=== PATIENT | female | born 1930 | race Caucasian/White ===

== ENCOUNTER 2016-11-07 12:42 | Emergency (ER) | payer MEDICARE, BC ==
[2016-11-07] MEDS ORDERED: Sodium Chloride 0.9% 2.5 ML Syringe FLUSH PRN (13:27)
[2016-11-07] MEDS ORDERED: Sodium Chloride 0.9% 10 ML Syringe FLUSH PRN (13:27)
--- NOTE | 2016-11-07 13:34 | EDM.PDOC ---
ED HPI Trauma - General Chief Complaint: Lower Extremity Injury/Pain Stated Complaint: RIGHT LEG Time Seen by Provider: 11/07/16 13:21 - History of Present Illness INITIAL COMMENTS - FREE TEXT/NARRATIVE: HISTORY AND PHYSICAL: History of present illness: Patient is an 86-year-old female who lives at [facility] and presents with complaints of bilateral leg pain and swelling that has been on and off for the last several weeks but worse the last few days. The patient states she had this happen in the past and it was treated by Dr. Thomas at [facility] but she doesn't recall how that was treated. The patient says that her left leg was swollen first and than the right started to swell and they wrapped the leg and that has since improved with the right leg is still swollen. She states that the pain is mostly when she is up trying to move around and she always uses a walker. She has not had a fall recently but she did have a fall several months ago with rib fractures and she says she still has some pain at the right chest wall area and occasional short of breath and cough. She's had no fevers chills nausea vomiting anterior chest pain abdominal pain vomiting or diarrhea. She says she is urinating fine and has been eating well. She has no neurosensory changes in her legs and says that the swelling is only below the knees and she is here for this evaluation. She currently follows with Dr. Espinoza at [facility] and he has not seen her for this. Review of systems: As per history of present illness and below otherwise all systems reviewed and negative. Past medical history: As per history of present illness and as reviewed below otherwise noncontributory. Surgical history: As per history of present illness and as reviewed below otherwise noncontributory. Social history: No reported history of drug or alcohol abuse. Family history: As per history of present illness and as reviewed below otherwise noncontributory. Physical exam: General: Well-developed thin and frail female who is nontoxic and speaking clearly and easily in ED. Vitals have been reviewed by me. Patient is very poor dentition HEENT: Atraumatic, normocephalic, pupils reactive, negative for conjunctival pallor or scleral icterus, mucous membranes moist, throat clear, neck supple, nontender, trachea midline. Lungs: Clear to auscultation, breath sounds equal bilaterally, chest nontender. The patient has a very kyphotic thoracic spine and she is moving air well bilaterally without work of breathing or sensory muscle use stridor or wheezing. I cannot appreciate any tenderness or defects of the chest wall on the right side the Heart: S1S2, regular rhythm slightly bradycardic rate on my evaluation, negative for clicks, rubs, or JVD. Abdomen: Soft, nondistended, nontender. Rotund abdomen with hypoactive bowel sounds but no tympany. Negative for masses or hepatosplenomegaly. Negative for costovertebral tenderness. Pelvis: Stable nontender. Genitourinary: Deferred. Rectal: Deferred. Extremities: Atraumatic, negative for cords or calf pain. Neurovascular unremarkable. The left lower leg has trace edema and there are chronic skin changes appreciated. The right lower extremity , from the knee to the dorsal aspect of the foot, has very soft edema nonpitting which also has a pinkish hue to it and some warmth posteriorly. It is about 1+. The patient's legs overall are very small and she is no discrete calf tenderness. There are no open wounds seen and there are also chronic skin changes to the right leg Neuro: Awake, alert, oriented. Motor and sensory unremarkable throughout. Exam nonfocal. Skin: Turgor is somewhat diminished and she has chronic skin changes seen on her upper and lower extremities but no open wounds Diagnostics: EKG chest x-ray CBC CMP BNP UA troponin lactic acid urine culture Therapeutics: IV O2 monitor keflex I discussed all testing with the patient and I will give her Keflex as an early cellulitis of her right leg as well as an early UTI. The patient has AMAN hose for both legs at home and have advised that she wear AMAN hose on both legs as much as possible to reduce the swelling. She will need to followup with Dr. Espinoza. Impression: Lower extremity dependent edema, early cellulitis right leg and early UTI Definitive disposition and diagnosis as appropriate pending reevaluation and review of above. Allergies/ADRs: Allergies clindamycin Allergy (Verified 11/07/16 13:19) Hives erythromycin base [Erythromycin Base] Allergy (Verified 11/07/16 13:19) Rash ibuprofen Allergy (Verified 11/07/16 13:19) Hives Sulfa (Sulfonamide Antibiotics) Allergy (Verified 11/07/16 13:19) Hives tolterodine tartrate [From Detrol] Allergy (Verified 03/23/17 13:19) Vomiting Home Medications: Ambulatory Orders Acetaminophen/oxyCODONE [Percocet 325-5 MG] 1 tab PO Q6HR PRN 03/12/14 [ Confirmed 07/06/16] Methylcellulose [Citrucel] 500 mg PO DAILY 03/12/14 [Confirmed 07/06/16] Solifenacin [Vesicare] 5 mg PO DAILY 03/12/14 [Confirmed 07/05/16] predniSONE 5 mg PO DAILY 03/12/14 [Confirmed 07/06/16] Bisacodyl 1 supp RECTAL ASDIRECTED PRN 07/05/16 [Confirmed 07/06/16] Denosumab [Prolia] 60 mg SUBCUT ASDIRECTED 07/05/16 [Confirmed 07/05/16] Hydroxychloroquine [Plaquenil] 200 mg PO DAILY 07/05/16 [Confirmed 07/06/16] Loperamide [Imodium] 2 mg PO ASDIRECTED 07/05/16 [Confirmed 07/06/16] Mag Hydrox/Al Hydrox/Simeth [Maalox Maximum Strength Susp] 1 - 2 tbsp PO QID PRN 07/05/16 [Confirmed 07/06/16] Omeprazole Magnesium [Prilosec Otc] 20 mg PO DAILY 07/05/16 [Confirmed 07/05/16] PARoxetine HCl [Paroxetine HCl] 10 mg PO DAILY 07/05/16 [Confirmed 07/06/16] Polyvinyl Alcohol [Artificial Tears] 1 drop EYEBOTH QID PRN 07/05/16 [Confirmed 07/06/16] Senna/Collace 2 tab PO BEDTIME 07/05/16 [Confirmed 07/06/16] Verapamil [Calan] 40 mg PO BID 07/05/16 [Confirmed 07/05/16] Acetaminophen [Tylenol] 650 mg PO Q4H PRN 07/06/16 [Confirmed 07/06/16] Calcium Carbonate/Vitamin D3 [Calcium 250+D] 2 tab PO DAILY 07/06/16 [Confirmed 07/06/16] Carboxymethylcellulose Sodium [Refresh Tears] 1 drop EYEBOTH BID 07/06/16 [ Confirmed 07/06/16] Furosemide 20 mg PO DAILY 07/06/16 [Confirmed 07/06/16] guaiFENesin/Codeine Phosphate [Guaiatussin AC] 1 tsp PO Q4H PRN 07/06/16 [ Confirmed 07/06/16] Docusate Sodium [Colace] 100 mg PO BID #30 cap 07/08/16 Hydrocodone/Acetaminophen [[place] 5-325] 1 - 2 tab PO Q4H PRN #60 tablet Past Medical History HEENT History: Reports: Allergic rhinitis Cardiovascular History: Reports: Hypertension, Other (see below) Other Cardiovascular History: venous insufficiency Respiratory History: Reports: None Gastrointestinal History: Reports: GERD, Other (see below) Other Gastrointestinal History: Chronic constipation Genitourinary History: Reports: Other (see below) Other Genitourinary History: bladder hypertonicity 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: Musculoskeletal History: Reports: Arthritis Neurological History: Reports: None Psychiatric History: Reports: None Endocrine/Metabolic History: Reports: Osteoporosis Hematologic History: Reports: Anemia Immunologic History: Reports: SLE Oncologic (Cancer) History: Reports: Breast Dermatologic History: Reports: None - Infectious Disease History Infectious Disease History: Reports: None - Past Surgical History HEENT Surgical History: Reports: None Cardiovascular Surgical History: Reports: None Respiratory Surgical History: Reports: None GI Surgical History: Reports: None Female Surgical History: Reports: Hysterectomy, Other (see below) Other Female Surgeries/Procedures: right breast mastectomy with lymphnodes removal Endocrine Surgical History: Reports: None Neurological Surgical History: Reports: None Musculoskeletal Surgical History: Reports: None Oncologic Surgical History: Reports: Mastectomy Dermatological Surgical History: Reports: None Social & Family History - Family History Family Medical History: Noncontributory - Tobacco Use Smoking Status *Q: Never Smoker Second Hand Smoke Exposure: No - Caffeine Use Caffeine Use: Reports: None - Alcohol Use Days Per Week of Alcohol Use: 0 - Recreational Drug Use Recreational Drug Use: No Review of Systems - Review of Systems Review Of Systems: ROS reveals no pertinent complaints other than HPI. Trauma Exam - Physical Exam Exam: See Below (See dictation) Course - Vital Signs Last Recorded V/S: Last Vital Signs Temp 36.8 C 11/07/16 13:15 Pulse 78 11/07/16 13:15 Resp 16 11/07/16 13:15 BP 109/48 L 11/07/16 13:15 Pulse Ox 98 11/07/16 14:01 - Orders/Labs/Meds Orders: Active Orders 24 hr Category Date Time Status Cardiac Monitoring [RC] . DIRECTED Care 11/07/16 13:27 Active EKG Documentation Completion [RC] STAT Care 11/07/16 13:27 Active Oxygen Therapy, ED [RC] ASDIRECTED Care 11/07/16 13:27 Active Pulse Oximetry [RC] ASDIRECTED Care 11/07/16 13:27 Active CULTURE URINE [RM] Stat Lab 11/07/16 16:24 Ordered Sodium Chloride 0.9% [Saline Flush] Med 11/07/16 13:27 Active 10 ml FLUSH ASDIRECTED PRN Sodium Chloride 0.9% [Saline Flush] Med 11/07/16 13:27 Active 2.5 ml FLUSH ASDIRECTED PRN Saline Lock Insert [OM.PC] Stat Oth 11/07/16 13:27 Ordered Medication Orders Sodium Chloride (Saline Flush) 10 ml FLUSH ASDIRECTED PRN PRN Reason: Keep Vein Open Sodium Chloride (Saline Flush) 2.5 ml FLUSH ASDIRECTED PRN PRN Reason: Keep Vein Open Labs: Laboratory Tests 11/07/16 11/07/16 11/07/16 Range/Units 13:43 13:43 13:43 WBC 9.23 (4.0-11.0) K/uL RBC 3.28 L (4.30-5.90) M/uL Hgb 10.1 L (12.0-16.0) g/dL Hct 30.6 L (36.0-46.0) % MCV 93.3 (80.0-98.0) fL MCH 30.8 (27.0-32.0) pg MCHC 33.0 (31.0-37.0) g/dL RDW Std Deviation 46.7 (28.0-62.0) fl RDW Coeff of Karina 14 (11.0-15.0) % Plt Count 244 (150-400) K/uL MPV 10.30 (7.40-12.00) fL Neut % (Auto) 71.9 (48.0-80.0) % Lymph % (Auto) 13.1 L (16.0-40.0) % Giles % (Auto) 13.0 (0.0-15.0) % Eos % (Auto) 1.8 (0.0-7.0) % Baso % (Auto) 0.2 (0.0-1.5) % Neut # (Auto) 6.6 H (1.4-5.7) K/uL Lymph # (Auto) 1.2 (0.6-2.4) K/uL Giles # (Auto) 1.2 H (0.0-0.8) K/uL Eos # (Auto) 0.2 (0.0-0.7) K/uL Baso # (Auto) 0.0 (0.0-0.1) K/uL Nucleated RBC % 0.0 /100WBC Nucleated RBCs # 0 K/uL Lactate (0.20-2.00) mmol/L Sodium 140 (136-146) mmol/L Potassium 3.7 (3.5-5.1) mmol/L Chloride 104 (98-110) mmol/L Carbon Dioxide 26 (21-31) mmol/L BUN 24 H (6.0-23.0) mg/dL Creatinine 1.0 (0.6-1.5) mg/dL Est Cr Clr Drug Dosing 28.78 mL/min Estimated GFR (MDRD) 52.4 ml/min Glucose 79 (60-110) mg/dL Calcium 8.9 (8.8-10.8) mg/dL Total Bilirubin 0.5 (0.1-1.5) mg/dL AST 17 (5-40) IU/L ALT 7 L (8-54) IU/L Alkaline Phosphatase 83 (40-150) Troponin I < 0.10 (0.0-0.29) NG/ML B-Natriuretic Peptide (<100) PG/ML Total Protein 5.8 L (6.0-8.0) g/dL Albumin 3.0 L (3.4-4.8) g/dL Globulin 2.8 (2.0-3.5) g/dL Albumin/Globulin Ratio 1.1 L (1.3-2.8) Urine Color Urine Appearance Urine pH (5.0-8.0) Ur Specific [place] (1.001-1.035) Urine Protein (NEGATIVE) mg/dL Urine Glucose (UA) (NEGATIVE) mg/dL Urine Ketones (NEGATIVE) mg/dL Urine Occult Blood (NEGATIVE) Urine Nitrite (NEGATIVE) Urine Bilirubin (NEGATIVE) Urine Urobilinogen (<2.0) EU/dL Ur Leukocyte Esterase (NEGATIVE) Urine RBC (0-2/HPF) Urine WBC (0-5/HPF) Ur Epithelial Cells (NONE-FEW) Urine Bacteria (NEGATIVE) 11/07/16 11/07/16 11/07/16 Range/Units 13:43 13:43 15:55 WBC (4.0-11.0) K/uL RBC (4.30-5.90) M/uL Hgb (12.0-16.0) g/dL Hct (36.0-46.0) % MCV (80.0-98.0) fL MCH (27.0-32.0) pg MCHC (31.0-37.0) g/dL RDW Std Deviation (28.0-62.0) fl RDW Coeff of Karina (11.0-15.0) % Plt Count (150-400) K/uL MPV (7.40-12.00) fL Neut % (Auto) (48.0-80.0) % Lymph % (Auto) (16.0-40.0) % Giles % (Auto) (0.0-15.0) % Eos % (Auto) (0.0-7.0) % Baso % (Auto) (0.0-1.5) % Neut # (Auto) (1.4-5.7) K/uL Lymph # (Auto) (0.6-2.4) K/uL Giles # (Auto) (0.0-0.8) K/uL Eos # (Auto) (0.0-0.7) K/uL Baso # (Auto) (0.0-0.1) K/uL Nucleated RBC % /100WBC Nucleated RBCs # K/uL Lactate 1.3 (0.20-2.00) mmol/L Sodium (136-146) mmol/L Potassium (3.5-5.1) mmol/L Chloride (98-110) mmol/L Carbon Dioxide (21-31) mmol/L BUN (6.0-23.0) mg/dL Creatinine (0.6-1.5) mg/dL Est Cr Clr Drug Dosing mL/min Estimated GFR (MDRD) ml/min Glucose (60-110) mg/dL Calcium (8.8-10.8) mg/dL Total Bilirubin (0.1-1.5) mg/dL AST (5-40) IU/L ALT (8-54) IU/L Alkaline Phosphatase (40-150) Troponin I (0.0-0.29) NG/ML B-Natriuretic Peptide 74 (<100) PG/ML Total Protein (6.0-8.0) g/dL Albumin (3.4-4.8) g/dL Globulin (2.0-3.5) g/dL Albumin/Globulin Ratio (1.3-2.8) Urine Color YELLOW Urine Appearance CLEAR Urine pH 7.0 (5.0-8.0) Ur Specific [place] 1.010 (1.001-1.035) Urine Protein NEGATIVE (NEGATIVE) mg/dL Urine Glucose (UA) NEGATIVE (NEGATIVE) mg/dL Urine Ketones NEGATIVE (NEGATIVE) mg/dL Urine Occult Blood TRACE-INTACT (NEGATIVE) Urine Nitrite NEGATIVE (NEGATIVE) Urine Bilirubin NEGATIVE (NEGATIVE) Urine Urobilinogen 0.2 (<2.0) EU/dL Ur Leukocyte Esterase MODERATE (NEGATIVE) Urine RBC 0-2 (0-2/HPF) Urine WBC 0-2 (0-5/HPF) Ur Epithelial Cells OCCASIONAL (NONE-FEW) Urine Bacteria FEW (NEGATIVE) Meds: Medications Generic Name Dose Route Start Last Admin Trade Name Freq PRN Reason Stop Dose Admin Sodium Chloride 10 ml 11/07/16 13:27 Saline Flush FLUSH ASDIRECTED PRN Keep Vein Open Sodium Chloride 2.5 ml 11/07/16 13:27 Saline Flush FLUSH ASDIRECTED PRN Keep Vein Open Discontinued Medications Generic Name Dose Route Start Last Admin Trade Name Freq PRN Reason Stop Dose Admin Cephalexin 500 mg 11/07/16 16:25 Keflex PO 11/07/16 16:26 ONETIME ONE Departure - Departure Time of Disposition: 16:33 Disposition: Home, Self-Care 01 Condition: good Clinical Impression: Cellulitis of leg, right, Bilateral lower extremity edema UTI (urinary tract infection) Qualifiers: Urinary tract infection type: site unspecified Hematuria presence: without hematuria Qualified Code(s): N39.0 - Urinary tract infection, site not specified Forms: ED Department Discharge Additional Instructions: The following information is given to patients seen in the emergency department who are being discharged to home. This information is to outline your options for follow-up care. We provide all patients seen in our emergency department with a follow-up referral. The need for follow-up, as well as the timing and circumstances, are variable depending upon the specifics of your emergency department visit. If you don't have a primary care physician on staff, we will provide you with a referral. We always advise you to contact your personal physician following an emergency department visit to inform them of the circumstance of the visit and for follow-up with them and/or the need for any referrals to a consulting specialist. The emergency department will also refer you to a specialist when appropriate. This referral assures that you have the opportunity for followup care with a specialist. All of these measure are taken in an effort to provide you with optimal care, which includes your followup. Under all circumstances we always encourage you to contact your private physician who remains a resource for coordinating your care. When calling for followup care, please make the office aware that this follow-up is from your recent emergency room visit. If for any reason you are refused follow-up, please contact the [facility] emergency department at and ask to speak to the emergency department charge nurse. [address] [place] [address] Please wear AMAN hose at all times and remove at bedtime. Please take antibiotics as directed. Please watch salt intake and call and followup with Dr. Espinoza at [facility]. Please return to ER as needed and as discussed please push more fluids. - My Orders Last 24 Hours: My Active Orders 11/07/16 13:27 Cardiac Monitoring [RC] . DIRECTED EKG Documentation Completion [RC] STAT Oxygen Therapy, ED [RC] ASDIRECTED Pulse Oximetry [RC] ASDIRECTED Sodium Chloride 0.9% [Saline Flush] 10 ml FLUSH ASDIRECTED PRN Sodium Chloride 0.9% [Saline Flush] 2.5 ml FLUSH ASDIRECTED PRN Saline Lock Insert [OM.PC] Stat 11/07/16 16:24 CULTURE URINE [RM] Stat - Assessment/Plan Last 24 Hours: My Active Orders 11/07/16 13:27 Cardiac Monitoring [RC] . DIRECTED EKG Documentation Completion [RC] STAT Oxygen Therapy, ED [RC] ASDIRECTED Pulse Oximetry [RC] ASDIRECTED Sodium Chloride 0.9% [Saline Flush] 10 ml FLUSH ASDIRECTED PRN Sodium Chloride 0.9% [Saline Flush] 2.5 ml FLUSH ASDIRECTED PRN Saline Lock Insert [OM.PC] Stat 11/07/16 16:24 CULTURE URINE [] Stat
--- NOTE | 2016-11-07 14:13 | CR ---
EXAMINATION: Two-view chest (PA and Lateral views). HISTORY: Shortness of breath. Comparison: 07/08/2016. FINDINGS: The trachea is midline. The cardiomediastinal silhouette is within normal limits. No pulmonary infil trates, effusions or pneumothorax. Mild chronic interstitial prominence. Aortic calcifications are n oted. Old left-sided rib fractures are noted. The osseous structures appear osteopenic. Chronic left clavi lulú fracture. IMPRESSION: No acute cardiopulmonary process.
[2016-11-07] MEDS ORDERED: Cephalexin 500 MG Cap PO ONE (16:25)
[2016-11-07 16:54] VITALS: BP 121/76
== END 2016-11-07 16:51 | disposition home or self-care (01) ==
LOC: MW.ED 12:42
DX: L03.116 Cellulitis of left lower limb (principal); L03.115 Cellulitis of right lower limb; N39.0 Urinary tract infection, site not specified; I10 Essential (primary) hypertension; K21.9 Gastro-esophageal reflux disease without esophagitis; M19.90 Unspecified osteoarthritis, unspecified site; Z86.2 Personal history of diseases of the blood and blood-forming organs and certain disorders involving the immune mechanism; Z90.710 Acquired absence of both cervix and uterus; Z88.2 Allergy status to sulfonamides; Z88.1 Allergy status to other antibiotic agents; Z88.8 Allergy status to other drugs, medicaments and biological substances; Z88.6 Allergy status to analgesic agent
CPT/HCPCS: 36415; 71020; 80053; 81001; 83605; 83880; 84484; 85025; 87086; 93005; 99284; A9270; 99283

== ENCOUNTER 2016-12-24 15:53 | Emergency (ER) | payer MEDICARE, BC ==
[2016-12-24] MEDS ORDERED: Sodium Chloride 0.9% 1,000 ML IV ONE (16:12)
[2016-12-24] MEDS ORDERED: Sodium Chloride 0.9% 10 ML Syringe FLUSH PRN (16:12)
[2016-12-24] MEDS ORDERED: Sodium Chloride 0.9% 2.5 ML Syringe FLUSH PRN (16:12)
--- NOTE | 2016-12-24 16:21 | EDM.PDOC ---
ED HPI GENERAL MEDICAL PROBLEM - General Chief Complaint: Gastrointestinal Problem Stated Complaint: PT HAS BODY PAIN Time Seen by Provider: 12/24/16 15:59 Source of Information: Reports: Patient History Limitations: Reports: No limitations - History of Present Illness INITIAL COMMENTS - FREE TEXT/NARRATIVE: History of present illness: [] Patient was seen in clinic today diagnosed with fecal impaction, small bowel obstruction on x-rays. She's had abdominal, back pain and nausea for 3 days. She has had no vomiting. She tolerated lunch at 11:30 today and had meatballs and mashed potatoes at [employer]. Patient's workup shows an infected urine with a WBC count of 11,000 with 81% neutrophils. Patient states she has pain when she urinates it is sharp. She has been passing gas daily including today. Patient had one day over the weekend where she stated her belly was rock hard but now it is "soft". Review of systems: As per history of present illness and below otherwise all systems reviewed and negative. Past medical history: As per history of present illness and as reviewed below otherwise noncontributory. Surgical history: As per history of present illness and as reviewed below otherwise noncontributory. Social history: No reported history of drug or alcohol abuse. Family history: As per history of present illness and as reviewed below otherwise noncontributory. Physical exam: General: Well developed, well nourished in NAD HEENT: Atraumatic, normocephalic, pupils reactive, negative for conjunctival pallor or scleral icterus, throat clear, neck supple, nontender, trachea midline. Dry mucosa Lungs: Clear to auscultation, breath sounds equal bilaterally, chest nontender. Heart: S1S2, regular, negative for clicks, rubs, or JVD. Abdomen: Soft, nondistended, nontender. Negative for masses or hepatosplenomegaly. Negative for costovertebral tenderness. Pelvis: Stable nontender. Genitourinary: Deferred. Rectal: Deferred. Extremities: Atraumatic, negative for cords or calf pain. Neurovascular unremarkable. Neuro: Awake, alert, oriented. Cranial nerves II through XII unremarkable. Cerebellum unremarkable. Motor and sensory unremarkable throughout. Exam nonfocal. Diagnostics: [] X-rays and labs done in clinic show constipation with dilated loops of bowel with a few air-fluid levels. Therapeutics: [] Patient was given IV hydration, 1 g Rocephin given Impression: [] UTI, constipation with mechanical partial small bowel obstruction Plan: [] Magnesium citrate, increase fluids and fiber, Definitive disposition and diagnosis as appropriate pending reevaluation and review of above. Abdominal Pain Score (Numeric/FACES): 10 - Related Data Allergies Allergy/AdvReac Type Severity Reaction Status Date / Time clindamycin Allergy Hives Verified 12/24/16 16:14 erythromycin base Allergy Rash Verified 12/24/16 16:14 [Erythromycin Base] ibuprofen Allergy Hives Verified 12/24/16 16:14 Sulfa (Sulfonamide Allergy Hives Verified 12/24/16 16:14 Antibiotics) tolterodine tartrate Allergy Vomiting Verified 12/24/16 16:14 [From Detrol] Home Meds: Home Meds Solifenacin [Vesicare] 5 mg PO DAILY 03/12/14 [History] Bisacodyl 1 supp RECTAL DAILY PRN 07/05/16 [History] Hydroxychloroquine [Plaquenil] 200 mg PO DAILY 07/05/16 [History] Mag Hydrox/Al Hydrox/Simeth [Maalox Maximum Strength Susp] 1 - 2 tbsp PO TID PRN 07/05/16 [History] Omeprazole Magnesium [Prilosec Otc] 20 mg PO ACBREAKFAST 07/05/16 [History] Verapamil [Calan] 40 mg PO BID 07/05/16 [History] Acetaminophen [Tylenol] 650 mg PO BID PRN 07/06/16 [History] Calcium Carbonate/Vitamin D3 [Calcium 250+D] 2 tab PO DAILY 07/06/16 [History] Carboxymethylcellulose Sodium [Refresh Tears] 1 drop EYEBOTH BID 07/06/16 [ History] Furosemide 40 mg PO DAILY 07/06/16 [History] Cephalexin [Keflex] 250 mg PO Q6HR #28 cap 12/24/16 [Rx] Docusate Sodium [Colace] 200 mg PO BEDTIME 12/24/16 [History] Loperamide HCl/Simethicone [Imodium Multi-Symptom Rel Cplt] 1 tab PO Q6H PRN 05/04 [History] Magnesium Citrate 295 ml PO ASDIRECTED PRN #1 bottle 12/24/16 [Rx] Ondansetron [Zofran ODT] 4 mg PO Q8H #28 tab.dis 12/24/16 [Rx] traMADol [Ultram] 50 mg PO BEDTIME PRN 12/24/16 [History] Past Medical History HEENT History: Reports: Allergic rhinitis Cardiovascular History: Reports: Hypertension, Other (see below) Other Cardiovascular History: venous insufficiency Respiratory History: Reports: None Gastrointestinal History: Reports: GERD, Other (see below) Other Gastrointestinal History: Chronic constipation Genitourinary History: Reports: Other (see below) Other Genitourinary History: bladder hypertonicity 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: Musculoskeletal History: Reports: Arthritis Neurological History: Reports: None Psychiatric History: Reports: None Endocrine/Metabolic History: Reports: Osteoporosis Hematologic History: Reports: Anemia Immunologic History: Reports: SLE Oncologic (Cancer) History: Reports: Breast Dermatologic History: Reports: None - Infectious Disease History Infectious Disease History: Reports: None - Past Surgical History HEENT Surgical History: Reports: None Cardiovascular Surgical History: Reports: None Respiratory Surgical History: Reports: None GI Surgical History: Reports: None Female Surgical History: Reports: Hysterectomy, Other (see below) Other Female Surgeries/Procedures: right breast mastectomy with lymphnodes removal Endocrine Surgical History: Reports: None Neurological Surgical History: Reports: None Musculoskeletal Surgical History: Reports: None Oncologic Surgical History: Reports: Mastectomy Dermatological Surgical History: Reports: None Social & Family History - Family History Family Medical History: Noncontributory - Tobacco Use Smoking Status *Q: Never Smoker Second Hand Smoke Exposure: No - Caffeine Use Caffeine Use: Reports: None - Alcohol Use Days Per Week of Alcohol Use: 0 - Recreational Drug Use Recreational Drug Use: No ED ROS GENERAL - Review of Systems Review Of Systems: See Below (See history of present illness) ED EXAM, GI/ABD - Physical Exam Exam: See Below (See history of present illness) Course - Vital Signs Last Recorded V/S: Last Vital Signs Temp 36.8 C 12/24/16 16:10 Pulse 83 12/24/16 16:10 Resp 18 12/24/16 16:10 BP 133/63 12/24/16 16:10 Pulse Ox 96 12/24/16 16:10 - Orders/Labs/Meds Orders: Active Orders 24 hr Category Date Time Status Sodium Chloride 0.9% [Saline Flush] Med 12/24/16 16:12 Active 10 ml FLUSH ASDIRECTED PRN Sodium Chloride 0.9% [Saline Flush] Med 12/24/16 16:12 Active 2.5 ml FLUSH ASDIRECTED PRN Peripheral IV Insertion Adult [OM.PC] Stat Oth 12/24/16 16:12 Ordered Medication Orders Sodium Chloride (Saline Flush) 10 ml FLUSH ASDIRECTED PRN PRN Reason: Keep Vein Open Sodium Chloride (Saline Flush) 2.5 ml FLUSH ASDIRECTED PRN PRN Reason: Keep Vein Open Meds: Medications Generic Name Dose Route Start Last Admin Trade Name Freq PRN Reason Stop Dose Admin Sodium Chloride 10 ml 12/24/16 16:12 Saline Flush FLUSH ASDIRECTED PRN Keep Vein Open Sodium Chloride 2.5 ml 12/24/16 16:12 Saline Flush FLUSH ASDIRECTED PRN Keep Vein Open Discontinued Medications Generic Name Dose Route Start Last Admin Trade Name Freq PRN Reason Stop Dose Admin Sodium Chloride 1,000 mls @ 999 mls/hr 12/24/16 16:12 12/24/16 16:29 Normal Saline IV 12/24/16 17:12 999 mls/hr .Bolus ONE Administration Ceftriaxone Sodium/Dextrose 1 50 mls @ 100 mls/hr 12/24/16 16:27 12/24/16 16: 33 gm/ Premix IV 12/24/16 16:56 100 mls/hr ONETIME ONE Administration Ondansetron HCl 4 mg 12/24/16 16:24 12/24/16 16:29 Zofran IVPUSH 12/24/16 16:25 4 mg ONETIME ONE Administration Departure - Departure Time of Disposition: 17:28 Disposition: Home, Self-Care 01 Condition: good Clinical Impression: Partial small bowel obstruction Constipation Qualifiers: Constipation type: unspecified constipation type Qualified Code(s): K59.00 - Constipation, unspecified Clinical Impression: (Ruled Out): Constipation due to outlet obstruction - Discharge Information Prescriptions: Cephalexin [Keflex] 250 mg PO Q6HR #28 cap Ondansetron [Zofran ODT] 4 mg PO Q8H #28 tab.dis Referrals: PCP,None [Primary Care Provider] - Forms: ED Department Discharge Additional Instructions: The following information is given to patients seen in the emergency department who are being discharged to home. This information is to outline your options for follow-up care. We provide all patients seen in our emergency department with a follow-up referral. The need for follow-up, as well as the timing and circumstances, are variable depending upon the specifics of your emergency department visit. If you don't have a primary care physician on staff, we will provide you with a referral. We always advise you to contact your personal physician following an emergency department visit to inform them of the circumstance of the visit and for follow-up with them and/or the need for any referrals to a consulting specialist. The emergency department will also refer you to a specialist when appropriate. This referral assures that you have the opportunity for follow-up care with a specialist. All of these measure are taken in an effort to provide you with optimal care, which includes your follow-up. Under all circumstances we always encourage you to contact your private physician who remains a resource for coordinating your care. When calling for follow-up care, please make the office aware that this follow-up is from your recent emergency room visit. If for any reason you are refused follow-up, please contact the [facility] Emergency Department at and asked to speak to the emergency department charge nurse. Take mag citrate increase fluids and fiber in your diet. If any vomiting occurs return to the ER immediately. Take Zofran for nausea and Keflex for a bladder infection until gone. Followup with your regular doctor within one week [facility] [address] [place] [id number] - My Orders Last 24 Hours: My Active Orders 12/24/16 16:12 Sodium Chloride 0.9% [Saline Flush] 10 ml FLUSH ASDIRECTED PRN Sodium Chloride 0.9% [Saline Flush] 2.5 ml FLUSH ASDIRECTED PRN Peripheral IV Insertion Adult [OM.PC] Stat - Assessment/Plan Last 24 Hours: My Active Orders 12/24/16 16:12 Sodium Chloride 0.9% [Saline Flush] 10 ml FLUSH ASDIRECTED PRN Sodium Chloride 0.9% [Saline Flush] 2.5 ml FLUSH ASDIRECTED PRN Peripheral IV Insertion Adult [OM.PC] Stat
[2016-12-24] MEDS ORDERED: Ondansetron 4 MG/2 ML SDV IVPUSH ONE (16:24)
[2016-12-24] MEDS ORDERED: cefTRIAXone 1 GM in Premix Bag 1 BAG IV ONE (16:27)
[2016-12-24 18:06] VITALS: BP 135/84
== END 2016-12-24 18:05 | disposition home or self-care (01) ==
LOC: MW.ED 15:53
DX: K56.69 Other intestinal obstruction (principal); K59.00 Constipation, unspecified; I10 Essential (primary) hypertension; K21.9 Gastro-esophageal reflux disease without esophagitis; Z85.3 Personal history of malignant neoplasm of breast; Z90.710 Acquired absence of both cervix and uterus; Z90.11 Acquired absence of right breast and nipple; Z79.899 Other long term (current) drug therapy; Z88.1 Allergy status to other antibiotic agents; Z88.2 Allergy status to sulfonamides; Z88.8 Allergy status to other drugs, medicaments and biological substances
CPT/HCPCS: 96361; 96365; 96375; 99283; J0696; J2405; J7040; 99284

== ENCOUNTER 2017-01-03 11:18 | Inpatient (IN) | payer MEDICARE, BC ==
[2017-01-03] MEDS ORDERED: Sodium Chloride 0.9% 2.5 ML Syringe FLUSH PRN (11:54)
[2017-01-03] MEDS ORDERED: Ondansetron 4 MG/2 ML SDV IVPUSH PRN (11:54)
--- NOTE | 2017-01-03 11:59 | PCM.HP ---
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 She was seen in our ED 12/24/2016 for similar complaints and discharge home with antibiotics for UTI and instructions for constipation. Patient reports she has continued to have very small stools since then, but continues to have intermittent nausea without vomiting. She reports abdominal pain and distension , unable to lie flat due to pressure on abdomen. She reports she has not been eating or drinking much secondary to nausea and abdominal pain. She denies fever /chills, chest pain or SOB at home. No urinary symptoms. She has been taking her regular pills and reports having a laxative twice daily at home, but unsure of the name. Will obtain med list from [facility]. Abdominal Xray from the clinic reveales prominent amount of stool within the colon at the level of the pelvis, stool load appears slightly decreased than previous imaging on 12/24/2016. Numerous loops of gas filled bowl as well as colon noted, some are at upper limits of slightly dilated suggesting partial small bowel obstruction likely secondary to fecal impaction, but these loops of bowel are less distended than on 12/24/2016 again. No clear evidence of free air under the hemidiaphragms. Labwork from clinic reveals no leukocytosis, Hgb 12.2 , BUN 46 and Cr 1.46 (baseline BUN 17-20 and Cr 0.8), Cl 95, Na 137. She will be admitted for partial bowel obstruction secondary to fecal impaction and dehydration. 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 - Related Data Allergies/Adverse Reactions: Allergies Allergy/AdvReac Type Severity Reaction Status Date / Time clindamycin Allergy Hives Verified 12/24/16 16:14 erythromycin base Allergy Rash Verified 12/24/16 16:14 [Erythromycin Base] ibuprofen Allergy Hives Verified 12/24/16 16:14 Sulfa (Sulfonamide Allergy Hives Verified 12/24/16 16:14 Antibiotics) tolterodine tartrate Allergy Vomiting Verified 12/24/16 16:14 [From Detrol] Home Medications: Home Meds Solifenacin [Vesicare] 5 mg PO DAILY 03/12/14 [History] Bisacodyl 1 supp RECTAL DAILY PRN 07/05/16 [History] Hydroxychloroquine [Plaquenil] 200 mg PO DAILY 07/05/16 [History] Mag Hydrox/Al Hydrox/Simeth [Maalox Maximum Strength Susp] 1 - 2 tbsp PO QID PRN 07/05/16 [History] Omeprazole Magnesium [Prilosec Otc] 40 mg PO ACBREAKFAST 07/05/16 [History] Verapamil [Calan] 40 mg PO BID 07/05/16 [History] Acetaminophen [Tylenol] 650 mg PO TID PRN 07/06/16 [History] Carboxymethylcellulose Sodium [Refresh Tears] 1 drop EYEBOTH BID 07/06/16 [ History] Furosemide 40 mg PO DAILY 07/06/16 [History] traMADol [Ultram] 50 mg PO BEDTIME PRN 12/24/16 [History] Carboxymethylcellulose Sodium [Refresh Tears] 1 drop EYEBOTH BID PRN 01/03/17 [ History] Doxycycline [Vibramycin] 100 mg PO BID 01/03/17 [History] Levofloxacin [Levaquin] 750 mg PO DAILY 01/03/17 [History] Loperamide [Imodium] 2 mg PO ASDIRECTED 01/03/17 [History] Ondansetron [Zofran ODT] 4 mg PO Q4H PRN 01/03/17 [History] Potassium Chloride 20 meq PO DAILY 01/03/17 [History] Sennosides/Docusate Sodium [Senna S Tablet] 1 each PO BID 01/03/17 [History] Past Medical History HEENT History: Reports: Allergic Rhinitis Cardiovascular History: Reports: Hypertension, Other (See Below). Denies: Afib , Blood Clots/VTE/DVT, Heart Failure, CA Other Cardiovascular History: venous insufficiency Respiratory History: Reports: None. 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: Musculoskeletal History: Reports: Arthritis Neurological History: Reports: None Psychiatric History: Reports: None Endocrine/Metabolic History: Reports: Osteoporosis Hematologic History: Reports: Anemia Immunologic History: Reports: SLE Oncologic (Cancer) History: Reports: Breast Dermatologic History: Reports: None - Infectious Disease History Infectious Disease History: Reports: None - Past Surgical History Female Surgical History: Reports: Hysterectomy, Other (See Below) Social & Family History - Family History Family Medical History: Noncontributory - Tobacco Use Smoking Status *Q: Never Smoker Second Hand Smoke Exposure: No - Caffeine Use Caffeine Use: Reports: None - Alcohol Use Days Per Week of Alcohol Use: 0 - Recreational Drug Use Recreational Drug Use: No - Living Situation & Occupation Living situation: Reports: Assisted Living Occupation: Retired H&P Review of Systems - Review of Systems: Review Of Systems: See Below General: Reports: No Symptoms. Denies: Fever, Chills, Malaise, Weakness HEENT: Reports: No Symptoms. Denies: Eye Pain, Headaches, Sinus Congestion, Visual Changes Pulmonary: Reports: No Symptoms. Denies: Shortness of Breath, Wheezing, Cough, Sputum Cardiovascular: Reports: Edema (intermittently to lower legs.). Denies: Chest Pain, Palpitations Gastrointestinal: Reports: Abdominal Pain, Anorexia, Constipation, Decreased Appetite, Distension, Nausea. Denies: Black Stool, Bloody Stool, Vomiting Genitourinary: Reports: No Symptoms. Denies: Dysuria, Frequency, Burning, Pain , Urgency, Retention Musculoskeletal: Reports: No Symptoms Skin: Reports: Wound (lower leg skin tear being treated with antibiotics and dressing changes.) Neurological: Reports: No Symptoms. Denies: Confusion, Dizziness, Headache, Trouble Speaking Hematologic/Lymphatic: Reports: No Symptoms Immunologic: Reports: No Symptoms Exam - Exam Exam: See Below - Vital Signs Weight: 42.184 kg - Exam General: Alert, Oriented, Cooperative HEENT: Conjunctiva Clear, Posterior Pharynx Clear, Pupils Reactive, Other ( multiple missing and broken teeth.). No: Mucosa Moist & Mason (lips dry and cracked, mouth dry ) Neck: Supple, Trachea Midline, 2 Lungs: Clear to Auscultation, Normal Respiratory Effort Cardiovascular: Regular Rate, Regular Rhythm, Systolic Murmur Abdomen: Normal Bowel Sounds, Distention, Tenderness, Other (firmness felt to lower abdomen.). No: Rebound Rectal (Female) Exam: Normal Exam, Normal Rectal Tone, Other (no stool noted in rectal vault, rectal vault distended) Back Exam: Normal Inspection, Full Range of Motion, NT Extremities: Normal Pulses, Edema (noted to L lower leg. wrapped in YAMILET wrap, dressing for skin tear) Skin: Wound (Left lower leg, dressing removed. Small 1-2 cm opening noted to lateral edge of L emmanuel. no surrounding erythema. Scant serous drainage. No fluctuance or induration noted. No necrotic tisse. Will dress with telfa and gauze wrap. Awaiting PT eval for special dressings instructions from wound care nurse at [facility]) Neuro Extensive - Mental Status: Alert, Oriented x3, Normal Mood/Affect, Normal Cognition, Memory Intact Neuro Extensive - Motor, Sensory, Reflexes: CN II-XII Intact, Normal Gait Psychiatric: Alert, Normal Affect, Normal Mood - Patient Data Result Diagrams: 01/03/17 12:29 01/03/17 12:29 *Q Meaningful Use (ADM) - VTE *Q VTE Criteria *Q: - VTE Risk Assess *Q Each Risk Factor Represents 1 Point: Swollen Legs, Current Total Score 1 Point Risk Factors: 1 Each Risk Factor Represents 2 Points: Previous Malignancy Total Score 2 Point Risk Factors: 2 Each Risk Factor Represents 3 Points: Age 75 Years or Greater Total Score 3 Point Risk Factors: 3 Each Risk Factor Represents 5 Points: None Total Score 5 Point Risk Factors: 0 Venous Thromboembolism Risk Factor Score *Q: 6 - Stroke *Q Stroke Criteria *Q: - AMI *Q AMI Criteria *Q: - Problem List (1) Bowel obstruction SNOMED Code(s): 94289435 ICD Code: K56.60 - UNSPECIFIED INTESTINAL OBSTRUCTION Status: Acute Current Visit: Yes Qualifiers: Intestinal obstruction type: fecal impaction Qualified Code(s): K56.41 - Fecal impaction (2) Dehydration SNOMED Code(s): 15864924 ICD Code: E86.0 - DEHYDRATION Status: Acute Current Visit: Yes (3) HTN (hypertension) SNOMED Code(s): 36265188 ICD Code: I10 - ESSENTIAL (PRIMARY) HYPERTENSION Status: Chronic Current Visit: Yes Qualifiers: Hypertension type: essential hypertension Qualified Code(s): I10 - Essential (primary) hypertension (4) SLE (systemic lupus erythematosus) SNOMED Code(s): 70124964, 581829339 ICD Code: M32.9 - SYSTEMIC LUPUS ERYTHEMATOSUS, UNSPECIFIED Status: Chronic Current Visit: Yes Qualifiers: Systemic lupus erythematosus type: unspecified Systemic lupus erythematosus organ involvement: unspecified Qualified Code(s): M32.9 - Systemic lupus erythematosus, unspecified (5) Hx of recurrent urinary tract infection SNOMED Code(s): 110803998 ICD Code: Z87.440 - PERSONAL HISTORY OF URINARY (TRACT) INFECTIONS Status: Chronic Current Visit: Yes (6) Arthritis SNOMED Code(s): 5257320, 798684356 ICD Code: M19.90 - UNSPECIFIED OSTEOARTHRITIS, UNSPECIFIED SITE Status: Chronic Current Visit: Yes (7) Hx of right mastectomy SNOMED Code(s): 657284689, 038769124 ICD Code: Z90.11 - ACQUIRED ABSENCE OF RIGHT BREAST AND NIPPLE Status: Chronic Current Visit: Yes Problem List Initiated/Reviewed/Updated: Yes Orders Last 24hrs: Active Orders 24 hr Category Date Time Status Patient Status [ADT] Routine ADT 01/03/17 11:54 Ordered Antiembolic Devices [RC] PER UNIT ROUTINE Care 01/03/17 11:57 Ordered Enema [RC] ASDIRECTED Care 01/03/17 11:54 Ordered Intake and Output [RC] QSHIFT Care 01/03/17 11:56 Ordered Oxygen Therapy [RC] PRN Care 01/03/17 11:54 Ordered Up With Assistance [RC] ASDIRECTED Care 01/03/17 11:54 Ordered VTE/DVT Education [RC] PER UNIT ROUTINE Care 01/03/17 11:54 Ordered Vital Signs [RC] Q4H Care 01/03/17 11:54 Ordered Clear Liquid Diet [DIET] Diet 01/03/17 Lunch Ordered CBC WITH AUTO DIFF [HEME] Routine Lab 01/03/17 11:53 Ordered COMPREHENSIVE METABOLIC PN,CMP [CHEM] Routine Lab 01/03/17 11:53 Ordered Acetaminophen [Tylenol] Med 01/03/17 11:54 Ordered 650 mg PO Q4H PRN Docusate Sodium [Colace] Med 01/03/17 12:00 Ordered 200 mg PO BID Ondansetron [Zofran] Med 01/03/17 11:54 Ordered 4 mg IVPUSH Q4H PRN Sodium Chloride 0.9% [Saline Flush] Med 01/03/17 11:54 Ordered 2.5 ml FLUSH ASDIRECTED PRN Saline Lock Insert [OM.PC] Routine Oth 01/03/17 11:54 Ordered Sequential Compression Device [OM.PC] Per Unit Routine [facility] 01/03/17 11:57 Ordered Assessment/Plan Comment:: This 86 year old female admitted for bowel obstruction secondary to fecal impaction and dehydration 1. Bowel obstruction: Will obtain abdomen/pelvis CT to rule out mass. Will administer enema at this time and pending CT results may trial oral laxative such as mag citrate if able. 2. Dehydration: Will hold Lasix. NS 100 ml/hr for hydration. 3. HTN: Monitor. Continue Verapamil. 4. hx SLE: continue Plaquenil. 5. Generalized weakness: Will need PT to eval and treat. but will hold off for now due to acute illness. VTE prophylaxis: Heparin Dispo: 2-4 days pending improvement. Discussed treatment plan with both son, JEFF Reyna and daughter Kira who are in agreement with current plan of care. [facility] due to increasing generalized weakness and needing more skill care than assisted living can manage at this time. Case management aware.
[2017-01-03] MEDS: Docusate Sodium 100 MG Cap PO SCH ×2 (12:30→20:26)
[2017-01-03] MEDS: Sodium Chloride 0.9% 1,000 ML IV SCH ×2 (14:08→23:40)
[2017-01-03] MEDS ORDERED: Carboxymethylcellulose Sodium 0.5% Ophth Soln 0.4 ML UD Box of 30 EYEBOTH PRN (15:03)
[2017-01-03] MEDS: Acetaminophen 325 MG Tab PO PRN (20:26)
[2017-01-03] MEDS: Carboxymethylcellulose Sodium 0.5% Ophth Soln 0.4 ML UD Box of 30 EYEBOTH SCH (20:27)
[2017-01-04] MEDS: Docusate Sodium 100 MG Cap PO SCH ×2 (08:58→20:58)
[2017-01-04] MEDS: Carboxymethylcellulose Sodium 0.5% Ophth Soln 0.4 ML UD Box of 30 EYEBOTH SCH ×2 (08:59→20:58)
[2017-01-04] MEDS: Sodium Chloride 0.9% 1,000 ML IV SCH ×2 (09:26→21:19)
[2017-01-04] MEDS ORDERED: Ondansetron 4 MG Tab.DIS PO PRN (13:04)
--- NOTE | 2017-01-04 13:12 | PCM.PN ---
- Review of Systems Systems Review Comment:: denies abdominal pain, has had several small stools - Patient Data Vitals - most recent: Last Vital Signs Temp 37.1 C 01/04/17 12:00 Pulse 78 01/04/17 12:00 Resp 16 01/04/17 12:00 BP 123/58 L 01/04/17 12:00 Pulse Ox 99 01/04/17 12:00 Weight - most recent: 42.184 kg I&O - last 24 hours: Intake & Output 01/03/17 01/04/17 01/04/17 22:59 06:59 14:59 Intake Total 120 1427 Output Total 700 680 Balance -580 747 Lab Results last 24 hrs: Laboratory Results - last 24 hr 01/04/17 01/04/17 Range/Units 05:35 05:35 WBC 7.77 (4.0-11.0) K/uL RBC 3.64 L (4.30-5.90) M/uL Hgb 10.7 L (12.0-16.0) g/dL Hct 32.7 L (36.0-46.0) % MCV 89.8 (80.0-98.0) fL MCH 29.4 (27.0-32.0) pg MCHC 32.7 (31.0-37.0) g/dL RDW Std Deviation 43.1 (28.0-62.0) fl RDW Coeff of Karina 13 (11.0-15.0) % Plt Count 288 (150-400) K/uL MPV 10.00 (7.40-12.00) fL Neut % (Auto) 68.7 (48.0-80.0) % Lymph % (Auto) 16.3 (16.0-40.0) % [place] % (Auto) 14.4 (0.0-15.0) % Eos % (Auto) 0.3 (0.0-7.0) % Baso % (Auto) 0.3 (0.0-1.5) % Neut # (Auto) 5.3 (1.4-5.7) K/uL Lymph # (Auto) 1.3 (0.6-2.4) K/uL [place] # (Auto) 1.1 H (0.0-0.8) K/uL Eos # (Auto) 0.0 (0.0-0.7) K/uL Baso # (Auto) 0.0 (0.0-0.1) K/uL Nucleated RBC % 0.0 /100WBC Nucleated RBCs # 0 K/uL Sodium 139 (136-146) mmol/L Potassium 3.3 L (3.5-5.1) mmol/L Chloride 106 (98-110) mmol/L Carbon Dioxide 22 (21-31) mmol/L BUN 33 H (6.0-23.0) mg/dL Creatinine 1.1 (0.6-1.5) mg/dL Est Cr Clr Drug Dosing 23.99 mL/min Estimated GFR (MDRD) 47.0 ml/min Glucose 67 (60-110) mg/dL Calcium 8.7 L (8.8-10.8) mg/dL Med Orders - Current: Current Medications Acetaminophen (Tylenol) 650 mg PO Q4H PRN PRN Reason: Pain Last Admin: 01/03/17 20:26 Dose: 650 mg Artificial Tears (Refresh Plus 0.5%) 1 each EYEBOTH BID PRN PRN Reason: Dry Eyes Artificial Tears (Refresh Plus 0.5%) 1 each EYEBOTH BID [facility] Last Admin: 01/04/17 08:59 Dose: 2 drop Bisacodyl (Dulcolax) mg RECTAL DAILY PRN PRN Reason: Constipation Docusate Sodium (Colace) 200 mg PO BID [facility] Last Admin: 01/04/17 08:58 Dose: 200 mg Hydroxychloroquine Sulfate (Plaquenil) 200 mg PO DAILY [facility] Sodium Chloride (Normal Saline) 1,000 mls @ 100 mls/hr IV ASDIRECTED [facility] Last Admin: 01/04/17 09:26 Dose: 100 mls/hr Non-Formulary Medication (Potassium Chloride) 20 meq PO DAILY [facility] Ondansetron HCl (Zofran) 4 mg IVPUSH Q4H PRN PRN Reason: Nausea Ondansetron HCl (Zofran Odt) 4 mg PO Q4H PRN PRN Reason: Nausea Senna/Docusate Sodium (Senna Plus) tab PO BID [facility] Sodium Chloride (Saline Flush) 2.5 ml FLUSH ASDIRECTED PRN PRN Reason: Keep Vein Open Verapamil HCl (Calan) 40 mg PO BID [facility] - Exam General: alert, cooperative, no acute distress Lungs: Clear to auscultation, Normal respiratory effort Cardiovascular: Regular Rate, Regular Rhythm Abdomen: bowel sounds present, soft, no tenderness, no distension Extremities: no edema Skin: warm, dry, intact - Problem List Review Problem List Initiated/Reviewed/Updated: Yes - My Orders Last 24 Hours: My Active Orders 01/04/17 13:04 Bisacodyl [Dulcolax] DOSE mg RECTAL DAILY PRN Ondansetron [Zofran ODT] 4 mg PO Q4H PRN 01/04/17 13:06 Abdomen 1V Upright [CR] Routine 01/04/17 21:00 Docusate Sodium/Sennosides [Senna Plus] DOSE tab PO BID Verapamil [Calan] 40 mg PO BID 01/05/17 09:00 Hydroxychloroquine [Plaquenil] 200 mg PO DAILY Potassium Chloride 20 meq PO DAILY - Plan Plan:: This 86 year old female admitted for bowel obstruction secondary to fecal impaction and dehydration 1. partial bowel obstruction/constipation: improving, CT report showed no obstruction. Will continue bowel regemen and clear liquid diet 2. Dehydration: Will hold Lasix. NS 100 ml/hr for hydration. 3. HTN: Monitor. Continue Verapamil. 4. hx SLE: continue Plaquenil. VTE prophylaxis: Heparin
[2017-01-04] MEDS: Bisacodyl 10 MG Supp RECTAL PRN (13:47)
[2017-01-04] MEDS ORDERED: Potassium Chloride 20 MEQ Tab.ER PO ONE (16:12)
[2017-01-04] MEDS: Heparin Sodium 5,000 Units/ML Vial SUBCUT SCH (21:01)
[2017-01-04] MEDS: Acetaminophen 325 MG Tab PO PRN (21:37)
[2017-01-05] MEDS: Acetaminophen 325 MG Tab PO PRN ×2 (04:03→10:04)
[2017-01-05 06:24] LABS: CHLORIDE,CL 110 mmol/L (98-110); SODIUM,NA 139 mmol/L (136-146)
[2017-01-05] MEDS ORDERED: Hydroxychloroquine 200 MG Tab PO SCH (09:00)
[2017-01-05] MEDS: Carboxymethylcellulose Sodium 0.5% Ophth Soln 0.4 ML UD Box of 30 EYEBOTH SCH ×2 (09:07→21:32)
[2017-01-05] MEDS: Docusate Sodium 100 MG Cap PO SCH ×2 (09:07→21:31)
[2017-01-05] MEDS: Potassium Chloride 20 MEQ Tab.ER PO SCH (09:09)
[2017-01-05] MEDS: Heparin Sodium 5,000 Units/ML Vial SUBCUT SCH ×2 (09:09→21:32)
[2017-01-05] MEDS: Hydroxychloroquine 200 MG Tab PO SCH (09:22)
[2017-01-05] MEDS: Bisacodyl 10 MG Supp RECTAL PRN (10:04)
[2017-01-05] MEDS: Sodium Chloride 0.9% 1,000 ML IV SCH (13:35)
--- NOTE | 2017-01-05 13:56 | PCM.PN ---
- General Info Date of Service: 01/05/17 Admission Dx/Problem (Free Text): Admission Diagnosis/Problem Admission Diagnosis/Problem Constipation, mechanical obstruction, dehydration Subjective Update: Patient feeling better today. She is ambulating. Has some DYKES. No sob at rest. Complaining of right sided abdominal/chest wall pain. Functional Status: Reports: tolerating diet, ambulating, urinating - Review of Systems General: Reports: No Symptoms HEENT: Reports: no symptoms Pulmonary: Reports: no symptoms Cardiovascular: Reports: Dyspnea on Exertion Gastrointestinal: Reports: Abdominal pain Genitourinary: Reports: no symptoms Musculoskeletal: Reports: no symptoms Skin: Reports: no symptoms Neurological: Reports: No Symptoms Psychiatric: Reports: no symptoms - Patient Data Vitals - most recent: Last Vital Signs Temp 37.1 C 01/05/17 12:00 Pulse 63 01/05/17 12:00 Resp 14 01/05/17 12:00 BP 145/61 H 01/05/17 12:00 Pulse Ox 94 L 01/05/17 12:00 Weight - most recent: 42.184 kg I&O - last 24 hours: Intake & Output 01/04/17 01/05/17 01/05/17 22:59 06:59 14:59 Intake Total 1959 911 Output Total 500 850 Balance 1459 61 Lab Results last 24 hrs: Laboratory Results - last 24 hr 01/05/17 01/05/17 Range/Units 05:21 05:21 WBC 6.31 (4.0-11.0) K/uL RBC 3.57 L (4.30-5.90) M/uL Hgb 10.6 L (12.0-16.0) g/dL Hct 32.3 L (36.0-46.0) % MCV 90.5 (80.0-98.0) fL MCH 29.7 (27.0-32.0) pg MCHC 32.8 (31.0-37.0) g/dL RDW Std Deviation 43.8 (28.0-62.0) fl RDW Coeff of Karina 13 (11.0-15.0) % Plt Count 282 (150-400) K/uL MPV 10.40 (7.40-12.00) fL Neut % (Auto) 62.5 (48.0-80.0) % Lymph % (Auto) 20.8 (16.0-40.0) % [place] % (Auto) 15.2 H (0.0-15.0) % Eos % (Auto) 1.0 (0.0-7.0) % Baso % (Auto) 0.5 (0.0-1.5) % Neut # (Auto) 4.0 (1.4-5.7) K/uL Lymph # (Auto) 1.3 (0.6-2.4) K/uL [place] # (Auto) 1.0 H (0.0-0.8) K/uL Eos # (Auto) 0.1 (0.0-0.7) K/uL Baso # (Auto) 0.0 (0.0-0.1) K/uL Nucleated RBC % 0.0 /100WBC Nucleated RBCs # 0 K/uL Sodium 139 (136-146) mmol/L Potassium 3.7 (3.5-5.1) mmol/L Chloride 110 (98-110) mmol/L Carbon Dioxide 19 L (21-31) mmol/L BUN 22 (6.0-23.0) mg/dL Creatinine 0.7 (0.6-1.5) mg/dL Est Cr Clr Drug Dosing 37.71 mL/min Estimated GFR (MDRD) > 60.0 ml/min Glucose 72 (60-110) mg/dL Calcium 8.1 L (8.8-10.8) mg/dL Med Orders - Current: Current Medications Acetaminophen (Tylenol) 650 mg PO Q4H PRN PRN Reason: Pain Last Admin: 01/05/17 10:04 Dose: 650 mg Artificial Tears (Refresh Plus 0.5%) 1 each EYEBOTH BID PRN PRN Reason: Dry Eyes Artificial Tears (Refresh Plus 0.5%) 1 each EYEBOTH BID REPLACED BY [facility] Last Admin: 01/05/17 09:07 Dose: 1 drop Bisacodyl (Dulcolax) 10 mg RECTAL DAILY PRN PRN Reason: Constipation Last Admin: 01/05/17 10:04 Dose: 10 mg Docusate Sodium (Colace) 200 mg PO BID [facility] Last Admin: 01/05/17 09:07 Dose: 200 mg Heparin Sodium (Porcine) (Heparin Sodium) 5,000 units SUBCUT Q12HR REPLACED BY [facility] Last Admin: 01/05/17 09:09 Dose: 5,000 units Sodium Chloride (Normal Saline) 1,000 mls @ 75 mls/hr IV ASDIRECTED REPLACED BY [facility] Last Admin: 01/05/17 13:35 Dose: 75 mls/hr Ondansetron HCl (Zofran) 4 mg IVPUSH Q4H PRN PRN Reason: Nausea Ondansetron HCl (Zofran Odt) 4 mg PO Q4H PRN PRN Reason: Nausea Hydroxychloroquine (200 Mg Tab) 1 each PO DAILY [facility]PLACED BY [facility] Last Admin: 01/05/17 09:22 Dose: Not Given Potassium Chloride (Klor-Con M20) 20 meq PO DAILY [facility]ED [facility] Last Admin: 01/05/17 09:09 Dose: 20 meq Senna/Docusate Sodium (Senna Plus) 1 tab PO BID [facility]PLACED BY [facility] Last Admin: 01/05/17 09:07 Dose: 1 tab Sodium Chloride (Saline Flush) 2.5 ml FLUSH ASDIRECTED PRN PRN Reason: Keep Vein Open Verapamil HCl (Calan) 40 mg PO BID REPLACED BY [facility] Last Admin: 01/05/17 09:08 Dose: 40 mg Discontinued Medications Hydroxychloroquine Sulfate (Plaquenil) 200 mg PO DAILY REPLACED BY [facility] Last Admin: 01/05/17 09:21 Dose: Not Given Potassium Chloride (Klor-Con M20) 40 meq PO ONETIME ONE Stop: 01/04/17 16:13 Last Admin: 01/04/17 16:54 Dose: 40 meq - Exam General: alert, oriented HEENT: Pupils equal, Pupils reactive Neck: supple, no JVD Lungs: Normal respiratory effort, Other (diminished breath sound and mild crackles at BL bases ) Cardiovascular: Regular Rate, Regular Rhythm Abdomen: no tenderness, no distension, rigidity. No: CVA tenderness Extremities: no edema Neurological: no new focal deficit - Problem List Review Problem List Initiated/Reviewed/Updated: Yes - Plan Plan:: This 86 year old female admitted for bowel obstruction secondary to fecal impaction and dehydration. complains of DYKES today with diminished sounds at BL bases. 1. partial bowel obstruction/constipation: improving, CT report showed no obstruction. AXR not suggestive of Constipation. Will continue bowel regemen and advance diet as tolerated. 2. Dehydration: Will hold Lasix. NS 100 ml/hr for hydration. 3. HTN: Monitor. Continue Verapamil. 4. hx SLE: continue Plaquenil. 5. DYKES: CXR 6. Dispo: Patient lives at [facility]. Staff recommends patient be moved to [place]. Will discuss with case management tomorrow. VTE prophylaxis: Heparin
[2017-01-05] MEDS: Acetaminophen 325 MG Tab PO SCH ×2 (16:34→21:31)
[2017-01-06] MEDS: Acetaminophen 325 MG Tab PO SCH ×2 (01:39→09:06)
[2017-01-06 06:38] LABS: CHLORIDE,CL 111 mmol/L (98-110); SODIUM,NA 136 mmol/L (136-146)
[2017-01-06] MEDS: Potassium Chloride 20 MEQ Tab.ER PO SCH (09:05)
[2017-01-06] MEDS: Docusate Sodium 100 MG Cap PO SCH (09:05)
[2017-01-06] MEDS: Carboxymethylcellulose Sodium 0.5% Ophth Soln 0.4 ML UD Box of 30 EYEBOTH SCH (09:06)
[2017-01-06] MEDS: Heparin Sodium 5,000 Units/ML Vial SUBCUT SCH (09:06)
[2017-01-06] MEDS: Hydroxychloroquine 200 MG Tab PO SCH (09:07)
[2017-01-06 12:13] VITALS: BP 127/56
--- NOTE | 2017-01-06 13:55 | PCM.DCSUM1 ---
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 She is a resident of [facility]. Abdominal Xray done at [place] suggestive of constipation and fecal impaction. She will be admitted for partial bowel obstruction secondary to fecal impaction and dehydration. She was started on bowel regimen and clear liquid diet. CT Abdomen was done and report showed no obstruction. AXR was repeated which was not suggestive of Constipation. Patient did eventually start to have bowel movements. She had at least 1 bm each day and had 6 bm's on 01/05. There was some concern amongst the [facility] staff as they suggest she be placed in [place]. Patients and her family insisted she go back to [facility]. Therefore decision was made to send the patient back to [facility]. She was discharged back to [facility] on 01/06. She will be needing home health and physical therapy. Dr. Mcclure will re resuming role of patients PCP and overseeing home health. Discharge Diagnosis: 1. SBO, improved 2. Dehydration, improved 3. HTN, stable - Discharge Data Discharge Date: 01/06/17 Discharge Disposition: DC/Tfer to Other 70 Condition: Good - Patient Summary/Data Consults: Consultations 01/03/17 15:03 Consult to Physical Therapy [PT Evaluation and Treatment] [CONS] Routine - Patient Instructions Diet: Usual Diet as Tolerated Activity: As Tolerated Notify Provider of: Fever, Swelling and Redness, Drainage, Nausea and/or Vomiting - Discharge Plan Prescriptions/Med Rec: Docusate Sodium [Colace] 200 mg PO BID #60 cap Home Medications: Home Meds Solifenacin [Vesicare] 5 mg PO DAILY 03/12/14 [History] Bisacodyl 1 supp RECTAL DAILY PRN 07/05/16 [History] Hydroxychloroquine [Plaquenil] 200 mg PO DAILY 07/05/16 [History] Mag Hydrox/Al Hydrox/Simeth [Maalox Maximum Strength Susp] 1 - 2 tbsp PO QID PRN 07/05/16 [History] Omeprazole Magnesium [Prilosec Otc] 40 mg PO ACBREAKFAST 07/05/16 [History] Verapamil [Calan] 40 mg PO BID 07/05/16 [History] Acetaminophen [Tylenol] 650 mg PO TID PRN 07/06/16 [History] Carboxymethylcellulose Sodium [Refresh Tears] 1 drop EYEBOTH BID 07/06/16 [ History] Furosemide 40 mg PO DAILY 07/06/16 [History] traMADol [Ultram] 50 mg PO BEDTIME PRN 12/24/16 [History] Carboxymethylcellulose Sodium [Refresh Tears] 1 drop EYEBOTH BID PRN 01/03/17 [ History] Ondansetron [Zofran ODT] 4 mg PO Q4H PRN 01/03/17 [History] Potassium Chloride 20 meq PO DAILY 01/03/17 [History] Docusate Sodium [Colace] 200 mg PO BID #60 cap 01/06/17 [Rx] Patient Handouts: Small Bowel Obstruction, [id number], Docusate capsules Referrals: Earl Espinoza MD [Physician] - 01/14/17 3:00 pm - Discharge Summary/Plan Comment DC Time >30 min.: No - Patient Data Vitals - Most Recent: Last Vital Signs Temp 36.3 C 01/06/17 12:00 Pulse 64 01/06/17 12:00 Resp 18 01/06/17 12:00 BP 127/56 L 01/06/17 12:00 Pulse Ox 94 L 01/06/17 12:00 Weight - Most Recent: 42.184 kg I&O - Last 24 hours: Intake & Output 01/05/17 01/06/17 01/06/17 22:59 06:59 14:59 Intake Total 650 340 Output Total 1770 400 Balance -1120 -60 Lab Results - Last 24 hrs: Laboratory Results - last 24 hr 01/06/17 01/06/17 Range/Units 06:03 06:03 WBC 5.78 (4.0-11.0) K/uL RBC 3.45 L (4.30-5.90) M/uL Hgb 10.3 L (12.0-16.0) g/dL Hct 30.9 L (36.0-46.0) % MCV 89.6 (80.0-98.0) fL MCH 29.9 (27.0-32.0) pg MCHC 33.3 (31.0-37.0) g/dL RDW Std Deviation 43.4 (28.0-62.0) fl RDW Coeff of Karina 13 (11.0-15.0) % Plt Count 261 (150-400) K/uL MPV 9.60 (7.40-12.00) fL Neut % (Auto) 53.3 (48.0-80.0) % Lymph % (Auto) 30.3 (16.0-40.0) % [place] % (Auto) 14.0 (0.0-15.0) % Eos % (Auto) 1.7 (0.0-7.0) % Baso % (Auto) 0.7 (0.0-1.5) % Neut # (Auto) 3.1 (1.4-5.7) K/uL Lymph # (Auto) 1.8 (0.6-2.4) K/uL [place] # (Auto) 0.8 (0.0-0.8) K/uL Eos # (Auto) 0.1 (0.0-0.7) K/uL Baso # (Auto) 0.0 (0.0-0.1) K/uL Nucleated RBC % 0.0 /100WBC Nucleated RBCs # 0 K/uL Sodium 136 (136-146) mmol/L Potassium 3.6 (3.5-5.1) mmol/L Chloride 111 H (98-110) mmol/L Carbon Dioxide 16 L (21-31) mmol/L BUN 16 (6.0-23.0) mg/dL Creatinine 0.7 (0.6-1.5) mg/dL Est Cr Clr Drug Dosing 37.71 mL/min Estimated GFR (MDRD) > 60.0 ml/min Glucose 76 (60-110) mg/dL Calcium 8.4 L (8.8-10.8) mg/dL Med Orders - Current: Current Medications Acetaminophen (Tylenol) 650 mg PO Q6H [facility] Last Admin: 01/06/17 09:06 Dose: 650 mg Artificial Tears (Refresh Plus 0.5%) 1 each EYEBOTH BID PRN PRN Reason: Dry Eyes Artificial Tears (Refresh Plus 0.5%) 1 each EYEBOTH BID [facility] Last Admin: 01/06/17 09:06 Dose: 1 drop Bisacodyl (Dulcolax) 10 mg RECTAL DAILY PRN PRN Reason: Constipation Last Admin: 01/05/17 10:04 Dose: 10 mg Docusate Sodium (Colace) 200 mg PO BID [facility] Last Admin: 01/06/17 09:05 Dose: 200 mg Heparin Sodium (Porcine) (Heparin Sodium) 5,000 units SUBCUT Q12HR [facility] Last Admin: 01/06/17 09:06 Dose: 5,000 units Ondansetron HCl (Zofran) 4 mg IVPUSH Q4H PRN PRN Reason: Nausea Ondansetron HCl (Zofran Odt) 4 mg PO Q4H PRN PRN Reason: Nausea Hydroxychloroquine (200 Mg Tab) 1 each PO DAILY [facility] Last Admin: 01/06/17 09:07 Dose: Not Given Potassium Chloride (Klor-Con M20) 20 meq PO DAILY [facility] Last Admin: 01/06/17 09:05 Dose: 20 meq Senna/Docusate Sodium (Senna Plus) 1 tab PO BID [facility] Last Admin: 01/06/17 09:05 Dose: 1 tab Sodium Chloride (Saline Flush) 2.5 ml FLUSH ASDIRECTED PRN PRN Reason: Keep Vein Open Verapamil HCl (Calan) 40 mg PO BID [facility] Last Admin: 01/06/17 09:05 Dose: 40 mg Discontinued Medications Acetaminophen (Tylenol) 650 mg PO Q4H PRN PRN Reason: Pain Last Admin: 01/05/17 10:04 Dose: 650 mg Hydroxychloroquine Sulfate (Plaquenil) 200 mg PO DAILY [facility] Last Admin: 01/05/17 09:21 Dose: Not Given Sodium Chloride (Normal Saline) 1,000 mls @ 75 mls/hr IV ASDIRECTED [facility] Last Admin: 01/05/17 13:35 Dose: 75 mls/hr Potassium Chloride (Klor-Con M20) 40 meq PO ONETIME ONE Stop: 01/04/17 16:13 Last Admin: 01/04/17 16:54 Dose: 40 meq *Q Meaningful Use (DIS) - VTE *Q VTE Criteria *Q: - Stroke *Q Stroke Criteria *Q: - AMI *Q AMI Criteria *Q: <Roque Singh J - Last Filed: 01/06/17 17:20> Discharge Summary - Patient Summary/Data Consults: Consultations 01/03/17 15:03 Consult to Physical Therapy [PT Evaluation and Treatment] [CONS] Routine - Patient Data Vitals - Most Recent: Last Vital Signs Temp 36.3 C 01/06/17 12:00 Pulse 64 01/06/17 12:00 Resp 18 01/06/17 12:00 BP 127/56 L 01/06/17 12:00 Pulse Ox 94 L 01/06/17 12:00 I&O - Last 24 hours: Intake & Output 01/06/17 01/06/17 01/06/17 06:59 14:59 22:59 Intake Total 340 350 Output Total 400 700 Balance -60 -350 Lab Results - Last 24 hrs: Laboratory Results - last 24 hr 01/06/17 01/06/17 Range/Units 06:03 06:03 WBC 5.78 (4.0-11.0) K/uL RBC 3.45 L (4.30-5.90) M/uL Hgb 10.3 L (12.0-16.0) g/dL Hct 30.9 L (36.0-46.0) % MCV 89.6 (80.0-98.0) fL MCH 29.9 (27.0-32.0) pg MCHC 33.3 (31.0-37.0) g/dL RDW Std Deviation 43.4 (28.0-62.0) fl RDW Coeff of Karina 13 (11.0-15.0) % Plt Count 261 (150-400) K/uL MPV 9.60 (7.40-12.00) fL Neut % (Auto) 53.3 (48.0-80.0) % Lymph % (Auto) 30.3 (16.0-40.0) % [place] % (Auto) 14.0 (0.0-15.0) % Eos % (Auto) 1.7 (0.0-7.0) % Baso % (Auto) 0.7 (0.0-1.5) % Neut # (Auto) 3.1 (1.4-5.7) K/uL Lymph # (Auto) 1.8 (0.6-2.4) K/uL [place] # (Auto) 0.8 (0.0-0.8) K/uL Eos # (Auto) 0.1 (0.0-0.7) K/uL Baso # (Auto) 0.0 (0.0-0.1) K/uL Nucleated RBC % 0.0 /100WBC Nucleated RBCs # 0 K/uL Sodium 136 (136-146) mmol/L Potassium 3.6 (3.5-5.1) mmol/L Chloride 111 H (98-110) mmol/L Carbon Dioxide 16 L (21-31) mmol/L BUN 16 (6.0-23.0) mg/dL Creatinine 0.7 (0.6-1.5) mg/dL Est Cr Clr Drug Dosing 37.71 mL/min Estimated GFR (MDRD) > 60.0 ml/min Glucose 76 (60-110) mg/dL Calcium 8.4 L (8.8-10.8) mg/dL Med Orders - Current: Current Medications Discontinued Medications Acetaminophen (Tylenol) 650 mg PO Q4H PRN PRN Reason: Pain Last Admin: 01/05/17 10:04 Dose: 650 mg Acetaminophen (Tylenol) 650 mg PO Q6H [facility] Last Admin: 01/06/17 09:06 Dose: 650 mg Artificial Tears (Refresh Plus 0.5%) 1 each EYEBOTH BID PRN PRN Reason: Dry Eyes Artificial Tears (Refresh Plus 0.5%) 1 each EYEBOTH BID [facility] Last Admin: 01/06/17 09:06 Dose: 1 drop Bisacodyl (Dulcolax) 10 mg RECTAL DAILY PRN PRN Reason: Constipation Last Admin: 01/05/17 10:04 Dose: 10 mg Docusate Sodium (Colace) 200 mg PO BID [facility] Last Admin: 01/06/17 09:05 Dose: 200 mg Heparin Sodium (Porcine) (Heparin Sodium) 5,000 units SUBCUT Q12HR [facility] Last Admin: 01/06/17 09:06 Dose: 5,000 units Hydroxychloroquine Sulfate (Plaquenil) 200 mg PO DAILY [facility] Last Admin: 01/05/17 09:21 Dose: Not Given Sodium Chloride (Normal Saline) 1,000 mls @ 75 mls/hr IV ASDIRECTED [facility] Last Admin: 01/05/17 13:35 Dose: 75 mls/hr Ondansetron HCl (Zofran) 4 mg IVPUSH Q4H PRN PRN Reason: Nausea Ondansetron HCl (Zofran Odt) 4 mg PO Q4H PRN PRN Reason: Nausea Hydroxychloroquine (200 Mg Tab) 1 each PO DAILY [facility] Last Admin: 01/06/17 09:07 Dose: Not Given Potassium Chloride (Klor-Con M20) 20 meq PO DAILY [facility] Last Admin: 01/06/17 09:05 Dose: 20 meq Potassium Chloride (Klor-Con M20) 40 meq PO ONETIME ONE Stop: 01/04/17 16:13 Last Admin: 01/04/17 16:54 Dose: 40 meq Senna/Docusate Sodium (Senna Plus) 1 tab PO BID [facility] Last Admin: 01/06/17 09:05 Dose: 1 tab Sodium Chloride (Saline Flush) 2.5 ml FLUSH ASDIRECTED PRN PRN Reason: Keep Vein Open Verapamil HCl (Calan) 40 mg PO BID [facility] Last Admin: 01/06/17 09:05 Dose: 40 mg *Q Meaningful Use (DIS) - VTE *Q VTE Criteria *Q: - Stroke *Q Stroke Criteria *Q: - AMI *Q AMI Criteria *Q: - Free Text/Narrative Note: I have examined the patient. I have discussed findings with resident. I agree with the assessment and plan outlined in the following resident's note.
--- NOTE | 2017-01-06 13:56 | CT ---
EXAM DATE: 01/03/17 PATIENT'S AGE: 86 Patient: NYDIA TOBAR Facility: [place], [place] Site . Site : 1930 Study: CT Abdomen/Pelvis WO CONT [id number]/19/2017 5:38:33 PM Ordering Physician: Samantha Nevarez Final Report: HISTORY: Constipation abdominal pain. Technique: CT abdomen and pelvis without contrast. Comparison: CT abdomen and pelvis 01/09/2013. Findings: Abdomen: Unenhanced liver, pancreas, and adrenal glands are unremarkable. Gallbladder is mildly distended but otherwise unremarkable. Calcified granuloma in the spleen. No nephroureterolithiasis. No hydronephrosis. Hyperdense cyst in the left kidney. No dilated bowel. Colonic diverticulosis. No ascites. No free intraperitoneal gas. No lymphadenopathy. Aortoiliac atherosclerotic calcification. No abdominal aortic aneurysm. Pelvis: And no free-fluid. No lymphadenopathy. Musculoskeletal: Left total hip arthroplasty. No significant change in lucency around the acetabular component. Acetabular component breeches the medial acetabular wall, unchanged. Generalized osteopenia. Degenerative changes in the spine. L5 vertebral body compression fracture, new since 01/09/2013. Unchanged T12 compression fracture. Lower chest: Atherosclerosis. Mitral anulus calcifications. Scarring in the lung bases. Impression: 1. No acute findings in the abdomen or pelvis. 2. Colonic diverticulosis. 3. Age-indeterminate L5 vertebral body compression fracture, new since 2012. Dictated by Vaibhav Mascorro MD @ Jan 03 2017 9:47PM (Electronic Signature) Report Signed by Proxy. [facility]
--- NOTE | 2017-01-06 15:14 | CR ---
EXAM DATE: 01/03/17 PATIENT'S AGE: 86 Patient: NYDIA TOBAR Facility: [place], [place] Site . Site : 1930 Study: XRay Abdomen [id number]/21/2017 8:26:12 AM Ordering Physician: Samantha Nevarez Final Report: INDICATION: follow up, constipation HISTORY: Constipation. COMPARISON: CT of the abdomen and pelvis 01/03/2017. TECHNIQUE: Single abdominal radiograph portable supine. FINDINGS: The left hip arthroplasty, partially visualized. Bowel gas pattern is nonspecific, but not typical for small bowel obstruction. Air-filled loops of small bowel and colon are similar to the recent finish opener tomogram from the CT performed 01/03/2017. Heavily calcified abdominal aorta and common iliac arteries. Osseous structures are intact. No suspicious calcification. No soft tissue mass by plain film. IMPRESSION: Nonspecific bowel gas pattern, but not typical for small bowel obstruction. Dictated by Gavino Mai MD @ 01/05/2017 8:28:00 AM Dictated by: Gavino Mai MD @ 01/05/2017 08:28:05 (Electronic Signature) Report Signed by Proxy. THOMAS
--- NOTE | 2017-01-06 16:48 | CR ---
EXAM DATE: 01/03/17 PATIENT'S AGE: 86 Patient: NYDIA TOBAR Facility: [place], [place] Site . Site : 1930 Study: XRay Chest [id number]/21/2017 2:58:45 PM Ordering Physician: Samantha Nevarez Final Report: HISTORY: Dyspnea on exertion. Technique: Chest two-views. Comparison: Chest x-ray 11/07/2016. Findings: No airspace consolidation. No pleural effusion or pneumothorax. Left hemidiaphragm is mildly elevated, unchanged. Cardiac silhouette is upper limits normal for size. Aortic atherosclerotic calcification. Distal left clavicle fracture with elevation of the distal clavicle, unchanged. Remote left rib fracture deformities. Degenerative changes in the spine. Mid thoracic vertebral body compression fracture with moderate-severe height loss, new since 2016. T12 vertebral body compression fracture, unchanged. Impression : 1. No acute cardiopulmonary findings. 2. Mid thoracic vertebral compression fracture, new since 11/07/2016. Dictated by Vaibhav Mascorro MD @ Jan 05 2017 3:32PM (Electronic Signature) Report Signed by Proxy. THOMAS
== END 2017-01-06 14:30 | disposition home or self-care (01) | DRG 390 ==
LOC: OBSVTOIN 11:18 → INTOOBSV 11:18 → UNDOADMOB 11:18 → MW.MS 11:18 → UNDOADMOB 13:15 → INTOOBSV 13:15 → MW.MS 13:15 → OBSVTOIN 13:15 → MW.MS 16:07 → UNDODISIN 01-06 14:30 → UNDODISOB 01-06 14:30
PROVIDERS: ADMIT Internal Medicine; ATTEND Internal Medicine
DX: K56.60 Unspecified intestinal obstruction (principal); E86.0 Dehydration; I10 Essential (primary) hypertension; M32.9 Systemic lupus erythematosus, unspecified; Z87.440 Personal history of urinary (tract) infections; M19.90 Unspecified osteoarthritis, unspecified site; Z85.3 Personal history of malignant neoplasm of breast; Z90.11 Acquired absence of right breast and nipple; R53.1 Weakness; I73.9 Peripheral vascular disease, unspecified; M81.0 Age-related osteoporosis without current pathological fracture; D64.9 Anemia, unspecified; K21.9 Gastro-esophageal reflux disease without esophagitis; K59.09 Other constipation; R06.00 Dyspnea, unspecified; Z79.899 Other long term (current) drug therapy; Z88.1 Allergy status to other antibiotic agents; Z88.2 Allergy status to sulfonamides; Z88.8 Allergy status to other drugs, medicaments and biological substances
CPT/HCPCS: 36415; 80053; 85025; A9270; G0378; 71020; 71020-26; 74000; 74000-26; 74176; 74176-26; 80048; J1644; J7040

== ENCOUNTER 2017-01-07 11:06 | Observation (INO) | payer MEDICARE, BC ==
--- NOTE | 2017-01-07 11:21 | EDM.PDOC ---
ED HPI GENERAL MEDICAL PROBLEM - General Chief Complaint: General Stated Complaint: FALL Time Seen by Provider: 01/07/17 11:17 - History of Present Illness INITIAL COMMENTS - FREE TEXT/NARRATIVE: HISTORY AND PHYSICAL: History of present illness: Patient is an 86-year-old white female was recently discharged from the hospital presents status post fall she injured her right elbow and right groin she was scheduled to be admitted to [facility] she is currently in assisted living situation there was some logistical issues per daughter and this was not executed subsequently after discharge at home today she had a resulting fall. She denies chest pain nausea vomiting palpitations head or neck pain, shortness of breath or other concern at this time she does complain of generalized weakness Review of systems: As per history of present illness and below otherwise all systems reviewed and negative. Past medical history: As per history of present illness and as reviewed below otherwise noncontributory. Surgical history: As per history of present illness and as reviewed below otherwise noncontributory. Social history: No reported history of drug or alcohol abuse. Family history: As per history of present illness and as reviewed below otherwise noncontributory. Physical exam: HEENT: Atraumatic, normocephalic, pupils reactive, negative for conjunctival pallor or scleral icterus, mucous membranes dry, throat clear, neck supple, nontender, trachea midline. Lungs: Clear to auscultation, breath sounds equal bilaterally, chest nontender. Heart: S1S2, regular, negative for clicks, rubs, or JVD. Abdomen: Soft, nondistended, nontender. Negative for masses or hepatosplenomegaly. Negative for costovertebral tenderness. Pelvis: Stable nontender. Genitourinary: Deferred. Rectal: Deferred. Extremities: Multiple bruises of various age small swelling noted right elbow with some tenderness there is no significant limited range of motion or some crepitation or point tenderness pelvis is stable CMS and neurovascular is unremarkable negative for cords or calf pain. Neurovascular unremarkable. Neuro: Awake, alert, oriented. Cranial nerves II through XII unremarkable. Cerebellum unremarkable. Motor and sensory unremarkable throughout. Exam nonfocal. Diagnostics: CBC CMP troponin EKG chest x-ray CT brain x-ray right elbow x-ray pelvis and right hip [employer]A [employer]: IV O2 monitor Impression: #1 observation status post fall #2 generalized weakness #3 acute right elbow injury #4 acute right hip injury Definitive disposition and diagnosis as appropriate pending reevaluation and review of above. - Related Data Allergies Allergy/AdvReac Type Severity Reaction Status Date / Time clindamycin Allergy Hives Verified 12/24/16 16:14 erythromycin base Allergy Rash Verified 12/24/16 16:14 [Erythromycin Base] ibuprofen Allergy Hives Verified 12/24/16 16:14 Sulfa (Sulfonamide Allergy Hives Verified 12/24/16 16:14 Antibiotics) tolterodine tartrate Allergy Vomiting Verified 12/24/16 16:14 [From Detrol] Home Meds: Home Meds Solifenacin [Vesicare] 5 mg PO DAILY 03/12/14 [History] Bisacodyl 1 supp RECTAL DAILY PRN 07/05/16 [History] Hydroxychloroquine [Plaquenil] 200 mg PO DAILY 07/05/16 [History] Mag Hydrox/Al Hydrox/Simeth [Maalox Maximum Strength Susp] 1 - 2 tbsp PO QID PRN 07/05/16 [History] Omeprazole Magnesium [Prilosec Otc] 40 mg PO ACBREAKFAST 07/05/16 [History] Verapamil [Calan] 40 mg PO BID 07/05/16 [History] Acetaminophen [Tylenol] 650 mg PO TID PRN 07/06/16 [History] Carboxymethylcellulose Sodium [Refresh Tears] 1 drop EYEBOTH BID 07/06/16 [ History] traMADol [Ultram] 50 mg PO BEDTIME PRN 12/24/16 [History] Potassium Chloride 20 meq PO DAILY 01/03/17 [History] Dextran 70/Hypromellose [Artificial Tears] 1 drop EYEBOTH QID PRN 01/07/17 [ History] Furosemide [Lasix] 40 mg PO DAILY 01/07/17 [History] Hydrocodone/Acetaminophen [Hydrocodon-Acetaminophen 5-325] 1 each PO Q4H PRN [History] Loperamide [Imodium] 2 mg PO ASDIRECTED PRN 01/07/17 [History] Methylcellulose [Citrucel] 1 tab PO DAILY 01/07/17 [History] Sennosides/Docusate Sodium [Senna-Docusate Sodium] 2 tab PO BID 01/07/17 [ History] guaiFENesin [Robitussin] 100 mg PO Q4H 01/07/17 [History] oxyCODONE 5 mg PO BEDTIME PRN 01/07/17 [History] Past Medical History HEENT History: Reports: Allergic Rhinitis Cardiovascular History: Reports: Hypertension, Other (See Below) Other Cardiovascular History: venous insufficiency Respiratory History: Reports: None Gastrointestinal History: Reports: Chronic Constipation, GERD Other Gastrointestinal History: Chronic constipation Genitourinary History: Reports: UTI, Recurrent, Other (See Below) Other Genitourinary History: bladder hypertonicity 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: Musculoskeletal History: Reports: Arthritis Neurological History: Reports: None Psychiatric History: Reports: None Endocrine/Metabolic History: Reports: Osteoporosis Hematologic History: Reports: Anemia Immunologic History: Reports: SLE Oncologic (Cancer) History: Reports: Breast Dermatologic History: Reports: None - Infectious Disease History Infectious Disease History: Reports: Chicken Pox, Measles - Past Surgical History Female Surgical History: Reports: Hysterectomy, Other (See Below) Social & Family History - Family History Family Medical History: Noncontributory - Tobacco Use Smoking Status *Q: Never Smoker Second Hand Smoke Exposure: No - Caffeine Use Caffeine Use: Reports: None - Alcohol Use Days Per Week of Alcohol Use: 0 - Recreational Drug Use Recreational Drug Use: No - Living Situation & Occupation Living situation: Reports: Assisted Living Occupation: Retired ED ROS GENERAL - Review of Systems Review Of Systems: ROS reveals no pertinent complaints other than HPI. ED EXAM, GENERAL - Physical Exam Exam: See Below (See dictation) Course - Vital Signs Last Recorded V/S: Last Vital Signs Temp 36.4 C 01/07/17 14:13 Pulse 72 01/07/17 14:13 Resp 20 01/07/17 14:13 BP 128/60 01/07/17 14:13 Pulse Ox 92 L 01/07/17 14:13 - Orders/Labs/Meds Orders: Active Orders 24 hr Category Date Time Status EKG Documentation Completion [RC] STAT Care 01/07/17 11:17 Active Labs: Laboratory Tests 01/07/17 01/07/17 01/07/17 Range/Units 11:57 11:57 11:57 WBC 15.45 H (4.0-11.0) K/uL RBC 3.88 L (4.30-5.90) M/uL Hgb 11.5 L (12.0-16.0) g/dL Hct 35.0 L (36.0-46.0) % MCV 90.2 (80.0-98.0) fL MCH 29.6 (27.0-32.0) pg MCHC 32.9 (31.0-37.0) g/dL RDW Std Deviation 44.3 (28.0-62.0) fl RDW Coeff of Karina 14 (11.0-15.0) % Plt Count 297 (150-400) K/uL MPV 10.00 (7.40-12.00) fL Add Manual Diff YES Neutrophils % (Manual) 63 (48.0-80.0) % Band Neutrophils % 12 % Lymphocytes % (Manual) 16 (16.0-40.0) % Monocytes % (Manual) 9 (0.0-15.0) % Nucleated RBC % 0.0 /100WBC Absolute Seg Neuts 9.7 Band Neutrophils # 1.9 Lymphocytes # (Manual) 2.5 Monocytes # (Manual) 1.4 Nucleated RBCs # 0 K/uL Reactive Lymphocytes FEW Sodium 138 (136-146) mmol/L Potassium 4.4 (3.5-5.1) mmol/L Chloride 105 (98-110) mmol/L Carbon Dioxide 22 (21-31) mmol/L BUN 18 (6.0-23.0) mg/dL Creatinine 0.8 (0.6-1.5) mg/dL Est Cr Clr Drug Dosing TNP Estimated GFR (MDRD) > 60.0 ml/min Glucose 85 (60-110) mg/dL Calcium 9.9 (8.8-10.8) mg/dL Total Bilirubin 0.7 (0.1-1.5) mg/dL AST 21 (5-40) IU/L ALT 15 (8-54) IU/L Alkaline Phosphatase 128 (40-150) Troponin I < 0.10 (0.0-0.29) NG/ML Total Protein 6.4 (6.0-8.0) g/dL Albumin 3.4 (3.4-4.8) g/dL Globulin 3.0 (2.0-3.5) g/dL Albumin/Globulin Ratio 1.1 L (1.3-2.8) Urine Color Urine Appearance Urine pH (5.0-8.0) Ur Specific [place] (1.001-1.035) Urine Protein (NEGATIVE) mg/dL Urine Glucose (UA) (NEGATIVE) mg/dL Urine Ketones (NEGATIVE) mg/dL Urine Occult Blood (NEGATIVE) Urine Nitrite (NEGATIVE) Urine Bilirubin (NEGATIVE) Urine Urobilinogen (<2.0) EU/dL Ur Leukocyte Esterase (NEGATIVE) Urine RBC (0-2/HPF) Urine WBC (0-5/HPF) Ur Epithelial Cells (NONE-FEW) Urine Bacteria (NEGATIVE) 01/07/17 Range/Units 12:00 WBC (4.0-11.0) K/uL RBC (4.30-5.90) M/uL Hgb (12.0-16.0) g/dL Hct (36.0-46.0) % MCV (80.0-98.0) fL MCH (27.0-32.0) pg MCHC (31.0-37.0) g/dL RDW Std Deviation (28.0-62.0) fl RDW Coeff of Karina (11.0-15.0) % Plt Count (150-400) K/uL MPV (7.40-12.00) fL Add Manual Diff Neutrophils % (Manual) (48.0-80.0) % Band Neutrophils % % Lymphocytes % (Manual) (16.0-40.0) % Monocytes % (Manual) (0.0-15.0) % Nucleated RBC % /100WBC Absolute Seg Neuts Band Neutrophils # Lymphocytes # (Manual) Monocytes # (Manual) Nucleated RBCs # K/uL Reactive Lymphocytes Sodium (136-146) mmol/L Potassium (3.5-5.1) mmol/L Chloride (98-110) mmol/L Carbon Dioxide (21-31) mmol/L BUN (6.0-23.0) mg/dL Creatinine (0.6-1.5) mg/dL Est Cr Clr Drug Dosing Estimated GFR (MDRD) ml/min Glucose (60-110) mg/dL Calcium (8.8-10.8) mg/dL Total Bilirubin (0.1-1.5) mg/dL AST (5-40) IU/L ALT (8-54) IU/L Alkaline Phosphatase (40-150) Troponin I (0.0-0.29) NG/ML Total Protein (6.0-8.0) g/dL Albumin (3.4-4.8) g/dL Globulin (2.0-3.5) g/dL Albumin/Globulin Ratio (1.3-2.8) Urine Color YELLOW Urine Appearance CLEAR Urine pH 5.0 (5.0-8.0) Ur Specific [place] 1.015 (1.001-1.035) Urine Protein NEGATIVE (NEGATIVE) mg/dL Urine Glucose (UA) NEGATIVE (NEGATIVE) mg/dL Urine Ketones NEGATIVE (NEGATIVE) mg/dL Urine Occult Blood TRACE-INTACT (NEGATIVE) Urine Nitrite NEGATIVE (NEGATIVE) Urine Bilirubin NEGATIVE (NEGATIVE) Urine Urobilinogen 0.2 (<2.0) EU/dL Ur Leukocyte Esterase NEGATIVE (NEGATIVE) Urine RBC 0-2 (0-2/HPF) Urine WBC 0-1 (0-5/HPF) Ur Epithelial Cells RARE (NONE-FEW) Urine Bacteria RARE (NEGATIVE) Departure - Departure Time of Disposition: 14:40 Disposition: Admitted As Inpatient 65 Condition: good Clinical Impression: Pelvic fracture, Elbow fracture - Discharge Information Referrals: PCP,Unknown [Primary Care Provider] - Forms: ED Department Discharge - My Orders Last 24 Hours: My Active Orders 01/07/17 11:17 EKG Documentation Completion [RC] STAT - Assessment/Plan Last 24 Hours: My Active Orders 01/07/17 11:17 EKG Documentation Completion [RC] STAT
[2017-01-07 12:20] LABS: CHLORIDE,CL 105 mmol/L (98-110); SODIUM,NA 138 mmol/L (136-146)
--- NOTE | 2017-01-07 13:26 | CT ---
EXAMINATION: Non contrast CT head. Coronal and sagittal reformats. HISTORY: Pain FINDINGS: No evidence of intra or extra axial hemorrhage, mass, midline shift, hydrocephalus or edema. Modera te generalized atrophy is noted. Mild periventricular white matter hypodensities. No hypoattenuation changes in the major vascular territories to suggest acute infarct. No abnormal intracranial calcifications are detected. No evidence of substantial vascular calcifica tions. Paranasal sinuses and mastoid air cells are well aerated without substantial findings. Pituitary fossa appears unremarkable. Calvarium is intact. No evidence of skull fracture. IMPRESSION: 1. No acute intracranial findings. 2. Moderate generalized atrophy and mild small vessel ischemic changes.
--- NOTE | 2017-01-07 13:48 | CR ---
EXAMINATION: Two-view chest (PA and Lateral views). HISTORY: Shortness of breath. FINDINGS: The trachea is midline. The cardiomediastinal silhouette is within normal limits. No pulmonary infil trates or pneumothorax. Aortic calcifications are noted. Trace pleural effusions are not excluded. Old left-sided rib and left clavicle fractures identified. Bone mineralization appears osteopenic. IMPRESSION: No acute cardiopulmonary process.
--- NOTE | 2017-01-07 13:50 | CR ---
EXAMINATION: Right elbow HISTORY: Fall COMPARISON: 07/23/2017 TECHNIQUE: 3 views FINDINGS/IMPRESSION: There is a nondisplaced olecranon fracture identified with a moderate underlyin g joint effusion. Remaining visualized osseous structures are osteopenic however intact.
--- NOTE | 2017-01-07 13:52 | CR ---
EXAMINATION: Pelvis and right hip HISTORY: Trauma COMPARISON: 01/05/2017 TECHNIQUE: AP pelvis and 2 views of the right hip FINDINGS: There is a comminuted mildly displaced superior pubic ramus fracture in the nondisplaced i nferior right pubic ramus fracture identified. There is a stable appearing left total hip replacemen t noted. The osseous structures are notably osteopenic. SI joints are symmetric. Vascular calcificat ions are noted. Joint space narrowing is noted within the right hip. IMPRESSION: 1. Superior and inferior right pubic rami fractures identified, mildly displaced. 2. Moderate severe joint space narrowing within the right hip. 3. Stable left hip hardware. 4. Generalized osteopenia.
[2017-01-07] MEDS ORDERED: Ibuprofen 200 MG Tab PO PRN (16:10)
--- NOTE | 2017-01-07 16:32 | PCM.HP ---
[id number] Diagnosis/Problem Traumatic injury - History of Present Illness Initial Comments - Free Text/Narative: 86 yo female who lives at [facility]. She was discharged yesterday after being admitted for constipation with partial bowel obstruction. [facility] staff were present during fall. She was evaluated in the ED with CT head which showed no acute intracranial findings. Right arm x-ray reported nondisplaced olecranon fracture. Right hip x-ray reported superior and inferior pubic rami fractures. Right Arm Pain Score (Numeric/FACES): 5 Right Hip Pain Score (Numeric/FACES): 5 - Related Data Allergies/Adverse Reactions: Allergies Allergy/AdvReac Type Severity Reaction Status Date / Time clindamycin Allergy Hives Verified 12/24/16 16:14 erythromycin base Allergy Rash Verified 12/24/16 16:14 [Erythromycin Base] ibuprofen Allergy Hives Verified 12/24/16 16:14 Sulfa (Sulfonamide Allergy Hives Verified 12/24/16 16:14 Antibiotics) tolterodine tartrate Allergy Vomiting Verified 12/24/16 16:14 [From Detrol] Home Medications: Home Meds Solifenacin [Vesicare] 5 mg PO DAILY 03/12/14 [History] Bisacodyl 10 mg RECTAL DAILY PRN 07/05/16 [History] Hydroxychloroquine [Plaquenil] 200 mg PO DAILY 07/05/16 [History] Mag Hydrox/Al Hydrox/Simeth [Maalox Maximum Strength Susp] 15 - 30 ml PO QID PRN 07/05/16 [History] Omeprazole Magnesium [Prilosec Otc] 40 mg PO ACBREAKFAST 07/05/16 [History] Verapamil [Calan] 40 mg PO BID 07/05/16 [History] Carboxymethylcellulose Sodium [Refresh Tears] 1 drop EYEBOTH BID 07/06/16 [ History] traMADol [Ultram] 50 mg PO BEDTIME 12/24/16 [History] Potassium Chloride 20 meq PO DAILY 01/03/17 [History] Dextran 70/Hypromellose [Artificial Tears] 1 drop EYEBOTH QID PRN 01/07/17 [ History] Furosemide [Lasix] 40 mg PO DAILY 01/07/17 [History] Methylcellulose [Citrucel] 500 mg PO DAILY 01/07/17 [History] Sennosides/Docusate Sodium [Senna-Docusate Sodium] 2 tab PO BID 01/07/17 [ History] guaiFENesin [Robitussin] 100 mg PO Q4H PRN 01/07/17 [History] Acetaminophen [Tylenol] 650 mg PO Q4H PRN #30 tablet 01/08/17 [Rx] Calcium Carbonate/Vitamin D3 [Calcium 600 + Vit D Tablet] 1 tab PO DAILY [History] oxyCODONE 10 mg PO Q8H #42 tablet 01/08/17 [Rx] Past Medical History HEENT History: Reports: Allergic Rhinitis Cardiovascular History: Reports: Hypertension, Other (See Below) Other Cardiovascular History: venous insufficiency Respiratory History: Reports: None Gastrointestinal History: Reports: Chronic Constipation, GERD Other Gastrointestinal History: Chronic constipation Genitourinary History: Reports: UTI, Recurrent, Other (See Below) Other Genitourinary History: bladder hypertonicity [employer]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: Musculoskeletal History: Reports: Arthritis Neurological History: Reports: None Psychiatric History: Reports: None Endocrine/Metabolic History: Reports: Osteoporosis Hematologic History: Reports: Anemia Immunologic History: Reports: SLE Oncologic (Cancer) History: Reports: Breast Dermatologic History: Reports: None - Infectious Disease History Infectious Disease History: Reports: Chicken Pox, Measles - Past Surgical History Female Surgical History: Reports: Hysterectomy, Other (See Below) Social & Family History - Family History Family Medical History: Noncontributory - Tobacco Use Smoking Status *Q: Never Smoker Second Hand Smoke Exposure: No - Caffeine Use Caffeine Use: Reports: Coffee - Alcohol Use Days Per Week of Alcohol Use: 0 - Recreational Drug Use Recreational Drug Use: No - Living Situation & Occupation Living situation: Reports: Assisted Living Occupation: Retired H&P Review of Systems - Review of Systems: Review Of Systems: See Below General: Reports: No Symptoms HEENT: Reports: No Symptoms Pulmonary: Reports: No Symptoms Cardiovascular: Reports: No Symptoms Gastrointestinal: Reports: No Symptoms Genitourinary: Reports: No Symptoms Musculoskeletal: Reports: No Symptoms Skin: Reports: No Symptoms Psychiatric: Reports: No Symptoms Neurological: Reports: No Symptoms Hematologic/Lymphatic: Reports: No Symptoms Immunologic: Reports: No Symptoms Exam - Exam Exam: See Below - Vital Signs Vital Signs: Last Vital Signs Temp 36.6 C 01/07/17 15:06 Pulse 92 01/07/17 15:06 Resp 18 01/07/17 15:06 BP 88/52 L 01/07/17 15:06 Pulse Ox 94 L 01/07/17 15:06 Weight: 36.197 kg - Exam General: Alert, Cooperative Cardiovascular: Regular Rate, Regular Rhythm Abdomen: Normal Bowel Sounds, Pelvis Stable. No: Tenderness Extremities: Normal Inspection. No: Edema Skin: Warm, Dry, Intact - Patient Data Result Diagrams: 01/07/17 11:57 01/07/17 11:57 *Q Meaningful Use (ADM) - VTE *Q VTE Criteria *Q: - Stroke *Q Stroke Criteria *Q: - AMI *Q AMI Criteria *Q: Problem List Initiated/Reviewed/Updated: Yes Orders Last 24hrs: Active Orders 24 hr Category Date Time Status Patient Status [ADT] Routine ADT 01/07/17 16:10 Ordered Antiembolic Devices [RC] PER UNIT ROUTINE Care 01/07/17 16:15 Ordered Oxygen Therapy [RC] PRN Care 01/07/17 16:10 Ordered Up With Assistance [RC] ASDIRECTED Care 01/07/17 16:10 Ordered VTE/DVT Education [RC] PER UNIT ROUTINE Care 01/07/17 16:10 Ordered Vital Signs [RC] Q4H Care 01/07/17 16:10 Ordered PT Evaluation and Treatment [CONS] Routine Cons 01/07/17 16:10 Ordered Acetaminophen [Tylenol] Med 01/07/17 16:10 Ordered 650 mg PO Q4H PRN Heparin Sodium Med 01/07/17 21:00 Ordered 5,000 units SUBCUT Q12HR Ibuprofen [Motrin] Med 01/07/17 16:10 Ordered 200 mg PO Q6H PRN Sequential Compression Device [OM.PC] Per Unit Routine Oth 01/07/17 16:11 Ordered Medication Orders Acetaminophen (Tylenol) 650 mg PO Q4H PRN PRN Reason: Pain (Mild 1-3)/fever Heparin Sodium (Porcine) (Heparin Sodium) 5,000 units SUBCUT Q12HR DARNELL Ibuprofen (Motrin) 200 mg PO Q6H PRN PRN Reason: Pain (mild 1-3) Assessment/Plan Comment:: 86 yo female who has sustaned a right elbow fracture and right pubic rami fractures with fall. Orthopedics has been consulted and have wraped right arm. We will observe the patient overnight. Patient will need [facility] home placement which family and patient are now agreeable to.
[2017-01-07] MEDS: Acetaminophen 325 MG Tab PO PRN ×2 (17:27→21:37)
--- NOTE | 2017-01-07 18:07 | PCM.CONS ---
H&P History of Present Illness - General Date of Service: 01/07/17 Admit Problem/Dx: Admission Diagnosis/Problem Admission Diagnosis/Problem Traumatic injury Source of Information: Patient History Limitations: Reports: No Limitations - History of Present Illness Initial Comments - Free Text/Narative: Patient had fall earlier today. C/o pain in R elbow and R hip region. Seen in ER. XR show nondisplaced R olecranon fracture and R sup/inf pubic rami fracture. Placed into long arm splint RUE. Has h/o previous R olecranon fracture treated with ORIF and subsequent HWR. No further issues until this fall. Currently sitting in chair eating supper. Pain well controlled. Denies distal paralysis, paresthesias. Onset of Symptoms: Reports: Today Associated Symptoms: Reports: No Other Symptoms Right Arm Pain Score (Numeric/FACES): 5 Right Hip Pain Score (Numeric/FACES): 4 - Related Data Allergies/Adverse Reactions: Allergies Allergy/AdvReac Type Severity Reaction Status Date / Time clindamycin Allergy Hives Verified 12/24/16 16:14 erythromycin base Allergy Rash Verified 12/24/16 16:14 [Erythromycin Base] ibuprofen Allergy Hives Verified 12/24/16 16:14 Sulfa (Sulfonamide Allergy Hives Verified 12/24/16 16:14 Antibiotics) tolterodine tartrate Allergy Vomiting Verified 12/24/16 16:14 [From Detrol] Home Medications: Home Meds Solifenacin [Vesicare] 5 mg PO DAILY 03/12/14 [History] Bisacodyl 1 supp RECTAL DAILY PRN 07/05/16 [History] Hydroxychloroquine [Plaquenil] 200 mg PO DAILY 07/05/16 [History] Mag Hydrox/Al Hydrox/Simeth [Maalox Maximum Strength Susp] 1 - 2 tbsp PO QID PRN 07/05/16 [History] Omeprazole Magnesium [Prilosec Otc] 40 mg PO ACBREAKFAST 07/05/16 [History] Verapamil [Calan] 40 mg PO BID 07/05/16 [History] Acetaminophen [Tylenol] 650 mg PO TID PRN 07/06/16 [History] Carboxymethylcellulose Sodium [Refresh Tears] 1 drop EYEBOTH BID 07/06/16 [ History] traMADol [Ultram] 50 mg PO BEDTIME PRN 12/24/16 [History] Potassium Chloride 20 meq PO DAILY 01/03/17 [History] Dextran 70/Hypromellose [Artificial Tears] 1 drop EYEBOTH QID PRN 01/07/17 [ History] Furosemide [Lasix] 40 mg PO DAILY 01/07/17 [History] Hydrocodone/Acetaminophen [Hydrocodon-Acetaminophen 5-325] 1 each PO Q4H PRN [History] Loperamide [Imodium] 2 mg PO ASDIRECTED PRN 01/07/17 [History] Methylcellulose [Citrucel] 1 tab PO DAILY 01/07/17 [History] Sennosides/Docusate Sodium [Senna-Docusate Sodium] 2 tab PO BID 01/07/17 [ History] guaiFENesin [Robitussin] 100 mg PO Q4H 01/07/17 [History] oxyCODONE 5 mg PO BEDTIME PRN 01/07/17 [History] Past Medical History HEENT History: Reports: Allergic Rhinitis Cardiovascular History: Reports: Hypertension, Other (See Below) Other Cardiovascular History: venous insufficiency Respiratory History: Reports: None Gastrointestinal History: Reports: Chronic Constipation, GERD Other Gastrointestinal History: Chronic constipation Genitourinary History: Reports: UTI, Recurrent, Other (See Below) Other Genitourinary History: bladder hypertonicity 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: Musculoskeletal History: Reports: Arthritis Neurological History: Reports: None Psychiatric History: Reports: None Endocrine/Metabolic History: Reports: Osteoporosis Hematologic History: Reports: Anemia Immunologic History: Reports: SLE Oncologic (Cancer) History: Reports: Breast Dermatologic History: Reports: None - Infectious Disease History Infectious Disease History: Reports: Chicken Pox, Measles - Past Surgical History Female Surgical History: Reports: Hysterectomy, Other (See Below) Social & Family History - Family History Family Medical History: Noncontributory - Tobacco Use Smoking Status *Q: Never Smoker Second Hand Smoke Exposure: No - Caffeine Use Caffeine Use: Reports: Coffee - Alcohol Use Days Per Week of Alcohol Use: 0 - Recreational Drug Use Recreational Drug Use: No - Living Situation & Occupation Living situation: Reports: Assisted Living Occupation: Retired H&P Review of Systems - Review of Systems: Review Of Systems: See Below General: Reports: No Symptoms HEENT: Reports: No Symptoms Pulmonary: Reports: No Symptoms Cardiovascular: Reports: No Symptoms Gastrointestinal: Reports: No Symptoms, Other (recent hospital admission for partial SBO) Musculoskeletal: Reports: Arm Pain, Leg Pain Skin: Reports: No Symptoms Psychiatric: Reports: No Symptoms Neurological: Reports: No Symptoms Hematologic/Lymphatic: Reports: No Symptoms Immunologic: Reports: No Symptoms Exam - Exam Exam: See Below - Vital Signs Vital Signs: Last Vital Signs Temp 97.8 F 01/07/17 15:06 Pulse 92 01/07/17 15:06 Resp 18 01/07/17 15:06 BP 88/52 L 01/07/17 15:06 Pulse Ox 94 L 01/07/17 16:10 Weight: 36.197 kg - Exam General: Alert, Oriented, 4 HEENT: Conjunctiva Clear, Nares Patent Neck: Supple, Trachea Midline, 2 Lungs: Normal Respiratory Effort Cardiovascular: Regular Rhythm Abdomen: Pelvis Stable (Female) Exam: Deferred Rectal (Female) Exam: Deferred Extremities: Normal Inspection Skin: Warm, Dry, Intact Neuro Extensive - Mental Status: Alert, Oriented x3 Psychiatric: Alert, Normal Affect, Normal Mood Physical Exam Comments:: Exam of RUE shows splint in place. AIN/PIN/uln motor intact. Rad/uln/med sensation intact. Cap refill <2sec. Exam of LE shows no pain with gentle R hip rotation. AT/EHL/gastroc 5/5. Sensation intact. DP 2+. - Patient Data Result Diagrams: 01/07/17 11:57 01/07/17 11:57 Imaging Impressions last 24 hrs: Xr of right elbow shows nondisplaced fracture of R olecranon. Evidence of prior fracture. XR of R hip and pelvis shows fracture of R superior/inferior pubic rami. No hip fracture appreciated. Significant degenerative changes R hip. Evidence of prior L ADALID. Obvious degenerative changes lower lumbar spine. Consult PN Assessment/Plan Procedures: Procedures ASSAY OF LACTIC ACID (11/07/16) ASSAY OF NATRIURETIC PEPTIDE (11/07/16) ASSAY OF TROPONIN QUANT (11/07/16) CHEST X-RAY 2VW FRONTAL&LATL (01/03/17) COMPLETE CBC W/AUTO DIFF WBC (01/03/17) COMPREHEN METABOLIC PANEL (01/03/17) CONTRAST X-RAY ESOPHAGUS (07/30/16) CT ABD & PELVIS W/O CONTRAST (01/03/17) CT HEAD/BRAIN W/O DYE (07/05/16) CT NECK SPINE W/O DYE (07/05/16) CULTURE OTHR SPECIMN AEROBIC (04/24/16) ELECTROCARDIOGRAM TRACING (11/07/16) EMERGENCY DEPT VISIT (12/24/16) EMERGENCY DEPT VISIT (11/07/16) EMERGENCY DEPT VISIT (07/05/16) EMERGENCY DEPT VISIT (01/20/16) EMERGENCY DEPT VISIT (11/18/14) EMERGENCY DEPT VISIT (03/12/14) HYDRATE IV INFUSION ADD-ON (12/24/16) METABOLIC PANEL TOTAL CA (01/03/17) ROUTINE VENIPUNCTURE (01/03/17) RPR S/N/A/GEN/TRK20.1-30.0CM (07/05/16) SMEAR WET MOUNT SALINE/INK (04/24/16) TDAP VACCINE 7 YRS/> IM (02/10/14) THER/PROPH/DIAG INJ IV PUSH (07/08/16) THER/PROPH/DIAG IV INF INIT (12/24/16) TX/PRO/DX INJ NEW DRUG ADDON (12/24/16) TX/PRO/DX INJ SAME DRUG GUEST RELATIONS REPRESENTATIVE (07/08/16) URINALYSIS AUTO W/SCOPE (11/07/16) URINE CULTURE/COLONY COUNT (11/07/16) X-RAY EXAM OF ABDOMEN (01/03/17) X-RAY EXAM OF COLLAR BONE (08/01/16) X-RAY EXAM OF FINGER(S) (07/08/16) (1) Elbow fracture Current Visit: Yes Qualifiers: Encounter type: initial encounter Fracture type: closed Laterality: right Qualified Code(s): S42.401A - Unspecified fracture of lower end of right humerus, initial encounter for closed fracture (2) Pelvic fracture SNOMED Code(s): 40519973 Code(s): S32.9XXA - FRACTURE OF UNSP PARTS OF LUMBOSACRAL SPINE AND PELVIS, INIT Current Visit: Yes Qualifiers: Encounter type: initial encounter Pelvic bone location: pubis Sublocation of pubis: other portion of pubis Fracture type: closed Laterality: right Qualified Code(s): S32.591A - Other specified fracture of right pubis, initial encounter for closed fracture Problem List Initiated/Reviewed/Updated: Yes Plan: Ass: R olecranon fracture 1. continue long arm splint 2. ok to weight bear on RUE with platform walker for transfers only 3. plan conservative treatment of fracture unless displacement noted Ass: R sup/inf pubic rami fracture 1. WBAT RLE 2. PT to evaluate for bed to chair transfers 3. pain management
[2017-01-07] MEDS: Heparin Sodium 5,000 Units/ML Vial SUBCUT SCH (21:37)
[2017-01-08] MEDS: oxyCODONE 5 MG Tab PO PRN ×3 (00:27→13:14)
[2017-01-08] MEDS: Acetaminophen 325 MG Tab PO PRN (01:38)
--- NOTE | 2017-01-08 08:13 | PCM.SN ---
- Free Text/Narrative Note: S: pt resting comfortably in bed this morning tolerating PO intake well, no nausea/vomiting c/o some aching in R elbow and pelvis, but states she is comfortable has been OOB to chair last night and transferred fine O: RUE LAS c/d/i freely moves fingers AIN/PIN/ulnar motor intact radial, ulnar, median sensation is intact cap refill <2 sec RLE no pain with gentle logrolling of hip AT/EHL/gastroc 5/5, dp 2+, sensation intact distally A: R nondisplaced olecranon fx R inf/sup pubic rami fx P: PT for bed to chair, FWW with RUE platform for bed to chair transfer only continue pain management dispo: to SNF when pt is accepted will f/u in clinic in 2 week for xr of R elbow and pelvis
[2017-01-08] MEDS: Heparin Sodium 5,000 Units/ML Vial SUBCUT SCH (09:21)
--- NOTE | 2017-01-08 09:48 | PCM.DCSUM1 ---
Addendum entered and electronically signed by Liu Brush MD 01/08/17 10:48: Discharge Summary - Hospital Course Free Text/Narrative:: -Senna 2 tabs BID -Bisacodyl 10 suppository PRN for constipation -Tramadol 50 mg PO bedtime -Tylenol 650 mg q4hr PRN for pain -regular diet as tolerated - Discharge Data Discharge Date: 01/08/17 Discharge Disposition: DC/Tfer to SNF 03 Condition: Fair - Patient Summary/Data Consults: Consultations 01/07/17 16:32 Consult to Physician [CONS] Routine 01/07/17 18:17 PT Evaluation and Treatment [CONS] Routine - Patient Instructions Diet: Regular Diet as Tolerated Activity: Apply Ice Showering/Bathing: May Shower Showering/Bathing, Other: Must keep splint clean and dry. Wound/Incision Care: Do NOT Change Dressing Notify Provider of: Increased Pain Other/Special Instructions: NWB RUE, keep splint in place. WBAT RLE, use FWW/ RUE platform for bed to chair transfers. - Discharge Plan Prescriptions/Med Rec: Acetaminophen [Tylenol] 650 mg PO Q4H PRN #30 tablet PRN Reason: Pain oxyCODONE 10 mg PO Q8H #42 tablet Home Medications: Home Meds Solifenacin [Vesicare] 5 mg PO DAILY 03/12/14 [History] Bisacodyl 10 mg RECTAL DAILY PRN 07/05/16 [History] Hydroxychloroquine [Plaquenil] 200 mg PO DAILY 07/05/16 [History] Mag Hydrox/Al Hydrox/Simeth [Maalox Maximum Strength Susp] 15 - 30 ml PO QID PRN 07/05/16 [History] Omeprazole Magnesium [Prilosec Otc] 40 mg PO ACBREAKFAST 07/05/16 [History] Verapamil [Calan] 40 mg PO BID 07/05/16 [History] Carboxymethylcellulose Sodium [Refresh Tears] 1 drop EYEBOTH BID 07/06/16 [ History] traMADol [Ultram] 50 mg PO BEDTIME 12/24/16 [History] Potassium Chloride 20 meq PO DAILY 01/03/17 [History] Dextran 70/Hypromellose [Artificial Tears] 1 drop EYEBOTH QID PRN 01/07/17 [ History] Furosemide [Lasix] 40 mg PO DAILY 01/07/17 [History] Methylcellulose [Citrucel] 500 mg PO DAILY 01/07/17 [History] Sennosides/Docusate Sodium [Senna-Docusate Sodium] 2 tab PO BID 01/07/17 [ History] guaiFENesin [Robitussin] 100 mg PO Q4H PRN 01/07/17 [History] Acetaminophen [Tylenol] 650 mg PO Q4H PRN #30 tablet 01/08/17 [Rx] Calcium Carbonate/Vitamin D3 [Calcium 600 + Vit D Tablet] 1 tab PO DAILY [History] oxyCODONE 10 mg PO Q8H #42 tablet 01/08/17 [Rx] Patient Handouts: Elbow Fracture, Simple, Simple Pelvic Fracture, Adult Referrals: Earl Espinoza MD [Physician] - Cady Blevins PA [Physician Sales Receptionist] - 01/21/17 8:45 am (If you have questions or concerns prior to follow-up, please call Dr. Cavazos's office. ) - Patient Data Vitals - Most Recent: Last Vital Signs Temp 37.1 C 01/08/17 08:00 Pulse 83 01/08/17 08:00 Resp 16 01/08/17 08:00 BP 108/54 L 01/08/17 08:00 Pulse Ox 100 01/08/17 08:00 Weight - Most Recent: 36.197 kg I&O - Last 24 hours: Intake & Output 01/07/17 01/08/17 01/08/17 22:59 06:59 14:59 Intake Total 1050 Output Total 200 379 Balance -200 671 Med Orders - Current: Current Medications Acetaminophen (Tylenol) 650 mg PO Q4H PRN PRN Reason: Pain (Mild 1-3)/fever Last Admin: 01/08/17 01:38 Dose: 650 mg Heparin Sodium (Porcine) (Heparin Sodium) 5,000 units SUBCUT Q12HR DARNELL Last Admin: 01/08/17 09:21 Dose: 5,000 units Oxycodone HCl (Oxycodone) 5 mg PO Q4H PRN PRN Reason: Pain Last Admin: 01/08/17 05:03 Dose: 5 mg Discontinued Medications Ibuprofen (Motrin) 200 mg PO Q6H PRN PRN Reason: Pain (mild 1-3) Original Note: <Trudi,Liu - Last Filed: 01/08/17 10:41> Discharge Summary - Hospital Course Free Text/Narrative:: 86 yo fm was recently hospitalized for SBO and was discharged to [facility] on. She was re-admitted on 01/07 for observation after sustaining a fall. XR revealed non-displaced fracture of her right arm and fracture of her right hip. Ortho was consulted and splinted right arm. Recommended pain management and conservative therapy including PT for bed to chair, FWW with RUE platform for bed to chair transfer only. Ortho will follow-up with with her in [address] Mcclure will be pcp for patient. Discharge Diagnosis: 1. R nondisplaced olecranon fx 2. R inf/sup pubic rami fx Discharge Plan: 1. PT for bed to chair 2. FWW with RUE platform for bed to chair transfer only 3. f/u with ortho in clinic in 2 week for xr of R elbow and pelvis 4. Oxycodone 10 mg PO q8 hours for pain - Discharge Data Discharge Date: 01/08/17 Discharge Disposition: DC/Tfer to SNF 03 Condition: Fair - Patient Summary/Data Consults: Consultations 01/07/17 16:32 Consult to Physician [CONS] Routine 01/07/17 18:17 PT Evaluation and Treatment [CONS] Routine - Patient Instructions Diet: Regular Diet as Tolerated Activity: Apply Ice Showering/Bathing: May Shower Showering/Bathing, Other: Must keep splint clean and dry. Wound/Incision Care: Do NOT Change Dressing Notify Provider of: Increased Pain Other/Special Instructions: NWB RUE, keep splint in place. WBAT RLE, use FWW/ RUE platform for bed to chair transfers. - Discharge Plan Prescriptions/Med Rec: Acetaminophen [Tylenol] 650 mg PO Q4H PRN #30 tablet PRN Reason: Pain oxyCODONE 10 mg PO Q8H #42 tablet Home Medications: Home Meds Solifenacin [Vesicare] 5 mg PO DAILY 03/12/14 [History] Bisacodyl 10 mg RECTAL DAILY PRN 07/05/16 [History] Hydroxychloroquine [Plaquenil] 200 mg PO DAILY 07/05/16 [History] Mag Hydrox/Al Hydrox/Simeth [Maalox Maximum Strength Susp] 15 - 30 ml PO QID PRN 07/05/16 [History] Omeprazole Magnesium [Prilosec Otc] 40 mg PO ACBREAKFAST 07/05/16 [History] Verapamil [Calan] 40 mg PO BID 07/05/16 [History] Carboxymethylcellulose Sodium [Refresh Tears] 1 drop EYEBOTH BID 07/06/16 [ History] traMADol [Ultram] 50 mg PO BEDTIME 12/24/16 [History] Potassium Chloride 20 meq PO DAILY 01/03/17 [History] Dextran 70/Hypromellose [Artificial Tears] 1 drop EYEBOTH QID PRN 01/07/17 [ History] Furosemide [Lasix] 40 mg PO DAILY 01/07/17 [History] Methylcellulose [Citrucel] 500 mg PO DAILY 01/07/17 [History] Sennosides/Docusate Sodium [Senna-Docusate Sodium] 2 tab PO BID 01/07/17 [ History] guaiFENesin [Robitussin] 100 mg PO Q4H PRN 01/07/17 [History] Acetaminophen [Tylenol] 650 mg PO Q4H PRN #30 tablet 01/08/17 [Rx] Calcium Carbonate/Vitamin D3 [Calcium 600 + Vit D Tablet] 1 tab PO DAILY [History] oxyCODONE 10 mg PO Q8H #42 tablet 01/08/17 [Rx] Patient Handouts: Elbow Fracture, Simple, Simple Pelvic Fracture, Adult Referrals: PCP,None [Ordering Only Provider] - Cady Blevins PA [Physician Sales Receptionist] - 01/21/17 8:45 am (If you have questions or concerns prior to follow-up, please call Dr. Cavazos's office. ) - Discharge Summary/Plan Comment DC Time >30 min.: No - Patient Data Vitals - Most Recent: Last Vital Signs Temp 37.2 C 01/08/17 04:00 Pulse 87 01/08/17 04:00 Resp 18 01/08/17 04:00 BP 100/49 L 01/08/17 04:00 Pulse Ox 96 01/08/17 04:00 Weight - Most Recent: 36.197 kg I&O - Last 24 hours: Intake & Output 01/07/17 01/08/17 01/08/17 22:59 06:59 14:59 Intake Total 1050 Output Total 200 379 Balance -200 671 Med Orders - Current: Current Medications Acetaminophen (Tylenol) 650 mg PO Q4H PRN PRN Reason: Pain (Mild 1-3)/fever Last Admin: 01/08/17 01:38 Dose: 650 mg Heparin Sodium (Porcine) (Heparin Sodium) 5,000 units SUBCUT Q12HR DARNELL Last Admin: 01/08/17 09:21 Dose: 5,000 units Oxycodone HCl (Oxycodone) 5 mg PO Q4H PRN PRN Reason: Pain Last Admin: 01/08/17 05:03 Dose: 5 mg Discontinued Medications Ibuprofen (Motrin) 200 mg PO Q6H PRN PRN Reason: Pain (mild 1-3) *Q Meaningful Use (DIS) - VTE *Q VTE Criteria *Q: - Stroke *Q Stroke Criteria *Q: - AMI *Q AMI Criteria *Q: <Roque Singh - Last Filed: 01/08/17 20:53> Discharge Summary - Patient Summary/Data Consults: Consultations 01/07/17 16:32 Consult to Physician [CONS] Routine 01/07/17 18:17 PT Evaluation and Treatment [CONS] Routine - Patient Data Vitals - Most Recent: Last Vital Signs Temp 37.1 C 01/08/17 08:00 Pulse 83 01/08/17 08:00 Resp 16 01/08/17 08:00 BP 108/54 L 01/08/17 08:00 Pulse Ox 100 01/08/17 08:00 I&O - Last 24 hours: Intake & Output 01/08/17 01/08/17 01/08/17 06:59 14:59 22:59 Intake Total 1050 Output Total 379 Balance 671 Med Orders - Current: Current Medications Discontinued Medications Acetaminophen (Tylenol) 650 mg PO Q4H PRN PRN Reason: Pain (Mild 1-3)/fever Last Admin: 01/08/17 01:38 Dose: 650 mg Heparin Sodium (Porcine) (Heparin Sodium) 5,000 units SUBCUT Q12HR DARNELL Last Admin: 01/08/17 09:21 Dose: 5,000 units Ibuprofen (Motrin) 200 mg PO Q6H PRN PRN Reason: Pain (mild 1-3) Oxycodone HCl (Oxycodone) 5 mg PO Q4H PRN PRN Reason: Pain Last Admin: 01/08/17 13:14 Dose: 5 mg *Q Meaningful Use (DIS) - VTE *Q VTE Criteria *Q: - Stroke *Q Stroke Criteria *Q: - AMI *Q AMI Criteria *Q: - Free Text/Narrative Note: I have examined patient. I have discussed findings with resident. I agree with the assessment and plan outlined in the following resident's note.
[2017-01-08 10:30] VITALS: BP 108/54
== END 2017-01-08 14:27 ==
LOC: MW.ED 11:06 → INTOOBSV 14:53 → MW.MS 14:53 → UNDOADMOB 14:53 → MW.MS 15:10
PROVIDERS: ADMIT Internal Medicine; ATTEND Internal Medicine
DX: S32.511A Fracture of superior rim of right pubis, initial encounter for closed fracture (principal); S32.591A Other specified fracture of right pubis, initial encounter for closed fracture; S52.024A Nondisplaced fracture of olecranon process without intraarticular extension of right ulna, initial encounter for closed fracture; W18.11XA Fall from or off toilet without subsequent striking against object, initial encounter; I10 Essential (primary) hypertension; M32.9 Systemic lupus erythematosus, unspecified; I87.2 Venous insufficiency (chronic) (peripheral); K21.9 Gastro-esophageal reflux disease without esophagitis; D64.9 Anemia, unspecified; R53.1 Weakness; N31.8 Other neuromuscular dysfunction of bladder; K59.09 Other constipation; R51 Headache; M81.0 Age-related osteoporosis without current pathological fracture; Z79.899 Other long term (current) drug therapy; Z87.440 Personal history of urinary (tract) infections; Z85.3 Personal history of malignant neoplasm of breast; M19.90 Unspecified osteoarthritis, unspecified site; Z88.1 Allergy status to other antibiotic agents; Z96.642 Presence of left artificial hip joint; Z88.2 Allergy status to sulfonamides; Z88.8 Allergy status to other drugs, medicaments and biological substances
CPT/HCPCS: 36415; 70450; 71020; 73080; 73502; 80053; 81001; 84484; 85025; 93005; 96372; 96374; 99285; A9270; G0378; J1644